=== PATIENT | male | born 1975 | race Caucasian/White ===

== ENCOUNTER 2019-01-17 15:03 | Emergency (ER) | payer OTHER ==
[~2019-01-17] VITALS: Ht 185.4 cm; Wt 108.9 kg
[~2019-01-17 15:03] MED LIST: ALBU90OI INH; ALPR1 PO; AMOX500 PO; ANTOXYBENA RIGHTEAR; ASPI325 PO; CIPDEXSU LEFTEAR; CIPR250 PO; COLC.6 PO; Ciprodex Otic7.5 ML RIGHTEAR; DOCU100 PO; HYDACE25S PR; HYDACE5 PO; HYDCOR2.5C PR; JANUVIA; KETO10 PO; METF500 PO; NAPR550 PO; NEOCOLOTSU OT; NEOPOLHCSU OT; OXYACE5T PO; PARO10 PO; PENVK500 PO; PROM25 PO; RANI150 PO; RXHYDACE PO; RXOXYACE PO; VALS80 PO
[2019-01-17 17:08] LABS: BASOPHILS ABSOLUTE AUTO 0.08 K/mm3 (0.00-0.23); BASOPHILS PERCENT AUTO 1 % (0-2); EOSINOPHILS ABSOLUTE AUTO 0.32 K/mm3 (0.00-0.68); EOSINOPHILS PERCENT AUTO 3 % (0-6); Hemoglobin 16.6 g/dL (13.5-17.5); IMMATURE GRAN ABSOLUTE AUTO 0.06 K/mm3 (0.00-0.10); IMMATURE GRAN PERCENT AUTO 1 % (0-1); LYMPHOCYTES ABSOLUTE AUTO 3.32 K/mm3 (0.84-5.20); LYMPHOCYTES PERCENT AUTO 31 % (21-46); MONOCYTES ABSOLUTE AUTO 0.91 K/mm3 (0.16-1.47); MONOCYTES PERCENT AUTO 9 % (4-13); Mean Corpuscular HGB 27.5 pg (26.0-34.0); Mean Corpuscular HGB Conc 33.2 g/dL (31.5-36.5); Mean Corpuscular Volume 83 fL (80-100); Mean Platelet Volume 8.9 fL (9.1-12.4); NEUTROPHILS ABSOLUTE AUTO 6.07 K/mm3 (1.96-9.15); NEUTROPHILS PERCENT AUTO 56 % (41-73); Platelet Count 375 K/mm3 (150-400); RDW Standard Deviation 36.5 fL (35.1-46.3); Red Blood Cell Count 6.03 M/mm3 (4.30-5.90); White Blood Cell Count 10.76 K/mm3 (4.00-11.30)
[2019-01-17 17:32] LABS: Alanine Aminotransfer (ALT/SGP 50 U/L (12-78); Albumin, Blood 3.5 g/dL (3.4-5.0); Albumin/Globulin Ratio 0.8 (0.8-1.8); Alk Phos 163 U/L (50-136); Anion Gap 8 mmol/L (6-16); Aspartate Aminotrans (AST/SGOT 32 U/L (12-37); Bilirubin, Total 0.5 mg/dL (0.1-1.0); Blood Urea Nitrogen 14 mg/dL (8-24); Bun/Creatinine Ratio 26.4 (12.0-20.0); CO2, Blood 25 mmol/L (21-32); Calcium, Blood 9.1 mg/dL (8.5-10.1); Chloride, Blood 97 mmol/L (98-108); Creatinine, Blood 0.53 mg/dL (0.60-1.20); Globulin, Blood 4.4 g/dL (2.2-4.0); Glomerular Filtration Rate >60 (60-); Glucose, Blood 413 mg/dL (70-99); Potassium, Blood 4.7 mmol/L (3.5-5.5); Sodium, Blood 130 mmol/L (136-145); Total Protein, Blood 7.9 g/dL (6.4-8.2)
[2019-01-17 17:34] LABS: Beta-hydroxybutyrate 1.6 mg/dL (0.2-2.8)
[2019-01-17] MEDS ORDERED: METF500C PO (19:15)
== END 2019-01-17 19:27 | disposition home or self-care (01) ==
LOC: ER 15:03
PROVIDERS: Emergency Medicine
DX: E11.65 Type 2 diabetes mellitus with hyperglycemia (principal); F41.9 Anxiety disorder, unspecified; I10 Essential (primary) hypertension; F17.210 Nicotine dependence, cigarettes, uncomplicated
CPT/HCPCS: 36415; 71046; 80053; 82010; 82947; 84484; 85025; 93005; 93010; 96360; 99285-25; J7030

== ENCOUNTER 2020-07-05 03:59 | Emergency (ER) | payer OTHER ==
[~2020-07-05] VITALS: Ht 185.4 cm; Wt 108.9 kg
[~2020-07-05 03:59] MED LIST changes: +METF500C PO
[2020-07-05] MEDS ORDERED: TRAZ100 PO (04:14)
[2020-07-05] MEDS ORDERED: TAMS.4ER PO (04:14)
[2020-07-05 04:34] LABS: BASOPHILS ABSOLUTE AUTO 0.08 K/mm3 (0.00-0.23); BASOPHILS PERCENT AUTO 1 % (0-2); EOSINOPHILS ABSOLUTE AUTO 0.27 K/mm3 (0.00-0.68); EOSINOPHILS PERCENT AUTO 3 % (0-6); Hemoglobin 14.6 g/dL (13.5-17.5); IMMATURE GRAN ABSOLUTE AUTO 0.02 K/mm3 (0.00-0.10); IMMATURE GRAN PERCENT AUTO 0 % (0-1); LYMPHOCYTES ABSOLUTE AUTO 2.96 K/mm3 (0.84-5.20); LYMPHOCYTES PERCENT AUTO 34 % (21-46); MONOCYTES PERCENT AUTO 9 % (4-13); Mean Corpuscular HGB 26.4 pg (26.0-34.0); Mean Corpuscular HGB Conc 31.7 g/dL (31.5-36.5); Mean Corpuscular Volume 83 fL (80-100); NEUTROPHILS ABSOLUTE AUTO 4.59 K/mm3 (1.96-9.15); NEUTROPHILS PERCENT AUTO 53 % (41-73); Platelet Count 300 K/mm3 (150-400); RDW Coefficient Variation 13.3 % (11.7-14.2); RDW Standard Deviation 40.9 fL (35.1-46.3); Red Blood Cell Count 5.53 M/mm3 (4.30-5.90); White Blood Cell Count 8.72 K/mm3 (4.00-11.30)
[2020-07-05 04:56] LABS: Alanine Aminotransfer (ALT/SGP 51 U/L (12-78); Albumin, Blood 3.5 g/dL (3.4-5.0); Albumin/Globulin Ratio 0.7 (0.8-1.8); Alk Phos 123 U/L (50-136); Anion Gap 6 mmol/L (6-16); Aspartate Aminotrans (AST/SGOT 3 U/L (12-37); Bilirubin, Total 0.8 mg/dL (0.1-1.0); Blood Urea Nitrogen 20 mg/dL (8-24); Bun/Creatinine Ratio 24.5 (12.0-20.0); CO2, Blood 25 mmol/L (21-32); Calcium, Blood 8.8 mg/dL (8.5-10.1); Chloride, Blood 106 mmol/L (98-108); Creatinine, Blood 0.82 mg/dL (0.60-1.20); Glomerular Filtration Rate >60 (60-); Glucose, Blood 147 mg/dL (70-99); Magnesium, Blood 2.2 mg/dL (1.6-2.4); Potassium, Blood 4.2 mmol/L (3.5-5.5); Sodium, Blood 137 mmol/L (136-145); Total Protein, Blood 8.5 g/dL (6.4-8.2); Troponin I <0.015 ng/mL (0.000-0.040)
[2020-07-05] MEDS ORDERED: Lasix20 MG PO (05:37)
== END 2020-07-05 05:48 | disposition home or self-care (01) ==
LOC: ER 03:59
PROVIDERS: Emergency Medicine
DX: R60.0 Localized edema (principal); R20.0 Anesthesia of skin; F41.9 Anxiety disorder, unspecified; E11.9 Type 2 diabetes mellitus without complications; I10 Essential (primary) hypertension; F17.210 Nicotine dependence, cigarettes, uncomplicated; Z79.82 Long term (current) use of aspirin; Z79.899 Other long term (current) drug therapy
CPT/HCPCS: 36415; 71046; 80053; 83690; 83735; 83880; 84484; 85025; 93005; 93010; J1940

== ENCOUNTER 2022-01-02 10:04 | Emergency (ER) | payer OTHER ==
[~2022-01-02] VITALS: Ht 185.4 cm; Wt 113.3 kg
[~2022-01-02 10:04] MED LIST changes: +Lasix20 MG PO; +TAMS.4ER PO; +TRAZ100 PO
[2022-01-02 10:49] LABS: BASOPHILS ABSOLUTE AUTO 0.07 K/mm3 (0.00-0.23); BASOPHILS PERCENT AUTO 1 % (0-2); EOSINOPHILS PERCENT AUTO 2 % (0-6); Hematocrit 50.3 % (37.0-53.0); IMMATURE GRAN ABSOLUTE AUTO 0.06 K/mm3 (0.00-0.10); IMMATURE GRAN PERCENT AUTO 1 % (0-1); LYMPHOCYTES ABSOLUTE AUTO 2.59 K/mm3 (0.84-5.20); LYMPHOCYTES PERCENT AUTO 31 % (21-46); MONOCYTES ABSOLUTE AUTO 0.82 K/mm3 (0.16-1.47); MONOCYTES PERCENT AUTO 10 % (4-13); Mean Corpuscular HGB 25.4 pg (26.0-34.0); Mean Corpuscular HGB Conc 31.8 g/dL (31.5-36.5); Mean Corpuscular Volume 80 fL (80-100); Mean Platelet Volume 9.7 fL (9.1-12.4); NEUTROPHILS ABSOLUTE AUTO 4.69 K/mm3 (1.96-9.15); NEUTROPHILS PERCENT AUTO 56 % (41-73); Platelet Count 280 K/mm3 (150-400); RDW Coefficient Variation 13.9 % (11.7-14.2); RDW Standard Deviation 39.9 fL (35.1-46.3); Red Blood Cell Count 6.29 M/mm3 (4.30-5.90); White Blood Cell Count 8.43 K/mm3 (4.00-11.30)
[2022-01-02 11:07] LABS: Base Excess Venous 3.5 mmol/L; Bicarbonate Venous 25.9 mmol/L (24.0-30.0); PCO2 Venous 51.5 mmHg (38-42); PO2 Venous 48.7 mmHg (38-42); pH Blood Venous 7.36 (7.34-7.37)
[2022-01-02 11:29] LABS: Alanine Aminotransfer (ALT/SGP 43 U/L (12-78); Albumin, Blood 3.5 g/dL (3.4-5.0); Albumin/Globulin Ratio 0.9 (0.8-1.8); Alk Phos 138 U/L (50-136); Anion Gap 6 mmol/L (6-16); Aspartate Aminotrans (AST/SGOT 25 U/L (12-37); Beta-hydroxybutyrate 0.7 mg/dL (0.2-2.8); Bilirubin, Total 1.1 mg/dL (0.1-1.0); Blood Urea Nitrogen 13 mg/dL (8-24); Bun/Creatinine Ratio 16.2 (12.0-20.0); CO2, Blood 29 mmol/L (21-32); Calcium, Blood 9.1 mg/dL (8.5-10.1); Chloride, Blood 97 mmol/L (98-108); Globulin, Blood 3.9 g/dL (2.2-4.0); Glomerular Filtration Rate >60 (60-); Glucose, Blood 365 mg/dL (70-99); Potassium, Blood 4.6 mmol/L (3.5-5.5); Sodium, Blood 132 mmol/L (136-145); Total Protein, Blood 7.4 g/dL (6.4-8.2)
[2022-01-02 11:46] LABS: Source, Urine Clean Catch
[2022-01-02 11:49] LABS: Bilirubin, Urine Neg (Neg); Blood, Urine 4+ (Neg); Glucose Qualitative, Urine 4+ (Neg); Ketones, Urine 1+ (Neg); Leukocyte Esterase, Urine Neg (Neg); Nitrite, Urine Neg (Neg); Protein, Urine 4+ (Neg); Specific Gravity, Urine 1.025 (1.003-1.022); Urobilinogen, Urine 1+ (Normal)
[2022-01-02 11:56] LABS: Appearance, Urine Hazy (Clear); Color, Urine Pale Yellow (P-Yellow); White Blood Cells, Urine 0-2 /hpf (0-5)
[2022-01-02 11:57] LABS: Amorphous Light (0-Heavy); Bacteria Few /hpf; Mucus Light (0-Heavy); Squamous Epithelial Cells Rare /hpf (Few)
[2022-01-02] MEDS ORDERED: SEMGLEE (Y100 UNIT/2 SC (13:21)
[2022-01-02] MEDS ORDERED: LISI5 (13:28)
== END 2022-01-02 14:16 | disposition home or self-care (01) ==
LOC: ER 10:04
PROVIDERS: Emergency Medicine; Student in an Organized Health Care Education/Training Program
DX: E11.65 Type 2 diabetes mellitus with hyperglycemia (principal); E86.0 Dehydration; I10 Essential (primary) hypertension; F17.210 Nicotine dependence, cigarettes, uncomplicated; Z86.16 Personal history of COVID-19; Z79.82 Long term (current) use of aspirin
CPT/HCPCS: 71046; 80053; 81001; 82010; 82803; 82947; 83735; 85025; 87086; 99285-25; A9270; J7030

== ENCOUNTER 2022-03-19 20:07 | Emergency (ER) | payer OTHER ==
[~2022-03-19] VITALS: Ht 185.4 cm; Wt 108.9 kg
[~2022-03-19 20:07] MED LIST changes: +LISI5; +SEMGLEE (Y100 UNIT/2 SC
[2022-03-19] MEDS ORDERED: HYDR1TAB94 PO (20:47)
== END 2022-03-19 21:13 | disposition home or self-care (01) ==
LOC: ER 20:07
DX: S20.212A Contusion of left front wall of thorax, initial encounter (principal); R07.81 Pleurodynia; E11.9 Type 2 diabetes mellitus without complications; F17.200 Nicotine dependence, unspecified, uncomplicated; W18.30XA Fall on same level, unspecified, initial encounter; Z79.4 Long term (current) use of insulin; Z79.899 Other long term (current) drug therapy; Z79.82 Long term (current) use of aspirin
CPT/HCPCS: 71101; A9270

== ENCOUNTER 2023-02-17 00:39 | Emergency (ER) | payer OTHER ==
[~2023-02-17] VITALS: Ht 185.4 cm; Wt 108.9 kg
[~2023-02-17 00:39] MED LIST changes: +HYDR1TAB94 PO
[2023-02-17] MEDS ORDERED: INSULIN GL100 UNIT/4 SC (01:30)
[2023-02-17 01:57] LABS: BASOPHILS ABSOLUTE AUTO 0.05 K/mm3 (0.00-0.23); BASOPHILS PERCENT AUTO 0 % (0-2); EOSINOPHILS ABSOLUTE AUTO 0.07 K/mm3 (0.00-0.68); EOSINOPHILS PERCENT AUTO 1 % (0-6); Hematocrit 47.3 % (37.0-53.0); IMMATURE GRAN ABSOLUTE AUTO 0.13 K/mm3 (0.00-0.10); IMMATURE GRAN PERCENT AUTO 1 % (0-1); LYMPHOCYTES ABSOLUTE AUTO 1.42 K/mm3 (0.84-5.20); LYMPHOCYTES PERCENT AUTO 11 % (21-46); MONOCYTES ABSOLUTE AUTO 1.66 K/mm3 (0.16-1.47); MONOCYTES PERCENT AUTO 13 % (4-13); Mean Corpuscular HGB 28.2 pg (26.0-34.0); Mean Corpuscular HGB Conc 33.8 g/dL (31.5-36.5); Mean Corpuscular Volume 83 fL (80-100); Mean Platelet Volume 9.7 fL (9.1-12.4); NEUTROPHILS ABSOLUTE AUTO 9.97 K/mm3 (1.96-9.15); NEUTROPHILS PERCENT AUTO 75 % (41-73); Platelet Count 193 K/mm3 (150-400); RDW Coefficient Variation 13.5 % (11.7-14.2); Red Blood Cell Count 5.68 M/mm3 (4.30-5.90)
[2023-02-17 02:00] VITALS: BP 134/89
[2023-02-17 02:03] LABS: Albumin, Blood 3.7 g/dL (3.4-5.0); Albumin/Globulin Ratio 0.9 (0.8-1.8); Bilirubin, Total 2.3 mg/dL (0.1-1.0); Bun/Creatinine Ratio 26.5 (12.0-20.0); Calcium, Blood 9.1 mg/dL (8.5-10.1); Creatinine, Blood 0.95 mg/dL (0.60-1.20); Globulin, Blood 4.2 g/dL (2.2-4.0); Potassium, Blood 4.4 mmol/L (3.5-5.5); Total Protein, Blood 7.9 g/dL (6.4-8.2)
[2023-02-17] MEDS ORDERED: CEPH500 PO (05:09)
[2023-02-17] MEDS ORDERED: KETO10 PO (14:15)
== END 2023-02-17 05:40 | disposition home or self-care (01) ==
LOC: ER 00:39
PROVIDERS: Student in an Organized Health Care Education/Training Program
DX: L03.116 Cellulitis of left lower limb (principal); E87.1 Hypo-osmolality and hyponatremia; M79.605 Pain in left leg; M79.604 Pain in right leg; E11.9 Type 2 diabetes mellitus without complications; I10 Essential (primary) hypertension; F17.210 Nicotine dependence, cigarettes, uncomplicated; Z79.899 Other long term (current) drug therapy
CPT/HCPCS: 36415; 80053; 83605; 83880; 85025; 93971; 96361; 96374; 96375; 99284-25; J0696; J7030

== ENCOUNTER 2023-02-25 12:37 | Emergency (ER) | payer OTHER ==
[~2023-02-25] VITALS: Ht 185.4 cm; Wt 113.4 kg
[~2023-02-25 12:37] MED LIST changes: +CEPH500 PO; +INSULIN GL100 UNIT/4 SC
[2023-02-25 13:02] VITALS: BP 135/81
[2023-02-25] MEDS ORDERED: FUROSEMIDE20 MG PO (13:18)
[2023-02-25] MEDS ORDERED: LISI20 PO (13:18)
[2023-02-25] MEDS ORDERED: INSULIN GL100 UNIT/4 SQ (13:18)
[2023-02-25] MEDS ORDERED: CEPH500 PO (13:55)
[2023-02-25] MEDS ORDERED: Norco 5-325 Ta1 EACH PO ×2 (13:56→14:07)
== END 2023-02-25 14:10 | disposition home or self-care (01) ==
LOC: ER 12:37
DX: L02.416 Cutaneous abscess of left lower limb (principal); I10 Essential (primary) hypertension; E11.9 Type 2 diabetes mellitus without complications; F17.210 Nicotine dependence, cigarettes, uncomplicated; Z79.899 Other long term (current) drug therapy; Z79.4 Long term (current) use of insulin
CPT/HCPCS: 10061; 99282-25

== ENCOUNTER → 2023-03-07 | Outpatient (CLI) | payer OTHER ==
[~2023-03-07] MED LIST changes: +FUROSEMIDE20 MG PO; +INSULIN GL100 UNIT/4 SQ; +LISI20 PO; +Norco 5-325 Ta1 EACH PO
[2023-03-07 17:45] LABS: Bun/Creatinine Ratio 26.5 (12.0-20.0); Creatinine, Blood 0.91 mg/dL (0.60-1.20); Magnesium, Blood 1.9 mg/dL (1.6-2.4); Potassium, Blood 4.3 mmol/L (3.5-5.5)
== END | disposition home or self-care (01) ==
LOC: LAB 15:35 → LAB SHORT 15:35
PROVIDERS: Family Medicine
DX: E87.1 Hypo-osmolality and hyponatremia (principal)
CPT/HCPCS: 80048; 83735

== ENCOUNTER → 2023-04-11 | Outpatient (CLI) | payer OTHER ==
[2023-04-11 20:03] LABS: Creatinine, Blood 0.89 mg/dL (0.60-1.20); Potassium, Blood 4.2 mmol/L (3.5-5.5)
[2023-04-11 20:04] LABS: Albumin, Blood 3.6 g/dL (3.4-5.0); Albumin/Globulin Ratio 0.8 (0.8-1.8); Bilirubin, Total 0.7 mg/dL (0.1-1.0); Bun/Creatinine Ratio 33.7 (12.0-20.0); Calcium, Blood 9.7 mg/dL (8.5-10.1); Globulin, Blood 4.3 g/dL (2.2-4.0); Total Protein, Blood 7.9 g/dL (6.4-8.2)
== END | disposition home or self-care (01) ==
LOC: LAB 16:13 → LAB SHORT 16:13
PROVIDERS: Family Medicine Adult Medicine
DX: E87.1 Hypo-osmolality and hyponatremia (principal)
CPT/HCPCS: 80053

== ENCOUNTER 2023-07-06 19:01 | Emergency (ER) | payer OTHER ==
[~2023-07-06] VITALS: Ht 182.9 cm; Wt 108.9 kg
[2023-07-06 19:08] VITALS: BP 139/87
[2023-07-06 19:39] LABS: BASOPHILS ABSOLUTE AUTO 0.06 K/mm3 (0.00-0.23); BASOPHILS PERCENT AUTO 1 % (0-2); EOSINOPHILS ABSOLUTE AUTO 0.05 K/mm3 (0.00-0.68); EOSINOPHILS PERCENT AUTO 0 % (0-6); Hematocrit 50.1 % (37.0-53.0); Hemoglobin 17.1 g/dL (13.5-17.5); IMMATURE GRAN ABSOLUTE AUTO 0.08 K/mm3 (0.00-0.10); IMMATURE GRAN PERCENT AUTO 1 % (0-1); LYMPHOCYTES PERCENT AUTO 13 % (21-46); MONOCYTES PERCENT AUTO 6 % (4-13); Mean Corpuscular HGB 29.2 pg (26.0-34.0); Mean Corpuscular HGB Conc 34.1 g/dL (31.5-36.5); Mean Corpuscular Volume 86 fL (80-100); Mean Platelet Volume 9.6 fL (9.1-12.4); NEUTROPHILS ABSOLUTE AUTO 8.94 K/mm3 (1.96-9.15); NEUTROPHILS PERCENT AUTO 80 % (41-73); Platelet Count 225 K/mm3 (150-400); RDW Coefficient Variation 13.2 % (11.7-14.2); Red Blood Cell Count 5.86 M/mm3 (4.30-5.90); White Blood Cell Count 11.23 K/mm3 (4.00-11.30)
== END 2023-07-06 21:11 | disposition home or self-care (01) ==
LOC: ER 19:01
PROVIDERS: Student in an Organized Health Care Education/Training Program
DX: T40.711A Poisoning by cannabis, accidental (unintentional), initial encounter (principal); R11.2 Nausea with vomiting, unspecified; Z79.4 Long term (current) use of insulin; Z79.899 Other long term (current) drug therapy; E11.9 Type 2 diabetes mellitus without complications; I10 Essential (primary) hypertension; F17.210 Nicotine dependence, cigarettes, uncomplicated
CPT/HCPCS: 85025; 99284; A9270

== ENCOUNTER 2024-07-25 21:51 | Emergency (ER) | payer OTHER ==
[~2024-07-25] VITALS: Ht 182.9 cm; Wt 108.9 kg
[~2024-07-25 21:51] MED LIST changes: +ACET500 PO; +ASPI81CH PO; +FUROSEMIDE40 MG PO; +METOPROLOL SUCC25 MG PO; +ROSUVASTATIN CA10 MG PO; +STEGLATRO15 MG PO; +TAMSULOSIN HCL0.4 M1 PO; +[UNRECOGNIZED DRUG - CODE] PO
[2024-07-25 22:45] LABS: BASOPHILS ABSOLUTE AUTO 0.06 K/mm3 (0.00-0.23); BASOPHILS PERCENT AUTO 1 % (0-2); EOSINOPHILS ABSOLUTE AUTO 0.13 K/mm3 (0.00-0.68); EOSINOPHILS PERCENT AUTO 2 % (0-6); IMMATURE GRAN ABSOLUTE AUTO 0.04 K/mm3 (0.00-0.10); IMMATURE GRAN PERCENT AUTO 1 % (0-1); LYMPHOCYTES ABSOLUTE AUTO 1.74 K/mm3 (0.84-5.20); LYMPHOCYTES PERCENT AUTO 21 % (21-46); MONOCYTES ABSOLUTE AUTO 0.86 K/mm3 (0.16-1.47); MONOCYTES PERCENT AUTO 10 % (4-13); Mean Corpuscular HGB 28.4 pg (26.0-34.0); Mean Corpuscular HGB Conc 32.6 g/dL (31.5-36.5); Mean Corpuscular Volume 87 fL (80-100); Mean Platelet Volume 9.2 fL (9.1-12.4); NEUTROPHILS ABSOLUTE AUTO 5.54 K/mm3 (1.96-9.15); NEUTROPHILS PERCENT AUTO 66 % (41-73); Platelet Count 200 K/mm3 (150-400); RDW Coefficient Variation 13.4 % (11.7-14.2); RDW Standard Deviation 43.1 fL (35.1-46.3); Red Blood Cell Count 5.29 M/mm3 (4.30-5.90); White Blood Cell Count 8.37 K/mm3 (4.00-11.30)
[2024-07-25 23:13] LABS: Albumin, Blood 3.4 g/dL (3.4-5.0); Bilirubin, Total 1.2 mg/dL (0.1-1.0); Bun/Creatinine Ratio 20.9 (12.0-20.0); Calcium, Blood 8.4 mg/dL (8.5-10.1); Creatinine, Blood 1.34 mg/dL (0.60-1.20); Globulin, Blood 3.3 g/dL (2.2-4.0); Potassium, Blood 3.6 mmol/L (3.5-5.5); Total Protein, Blood 6.7 g/dL (6.4-8.2)
[2024-07-26] MEDS ORDERED: Furosemide 10 MG/ML 4ML Vial IV ONE (02:50)
[2024-07-26] MEDS ORDERED: Acetaminophen 500 MG Tab PO ONE (03:10)
[2024-07-26 03:53] LABS: Magnesium, Blood 2.2 mg/dL (1.6-2.4); Phosphorus, Blood 4.1 mg/dL (2.5-4.9)
[2024-07-26] MEDS ORDERED: FURO80 PO (03:58)
[2024-07-26 04:00] VITALS: BP 130/82
== END 2024-07-26 04:10 | disposition home or self-care (01) ==
LOC: ER 21:51
PROVIDERS: Emergency Medicine; Physician Assistant
DX: I11.0 Hypertensive heart disease with heart failure (principal); I50.9 Heart failure, unspecified; I89.0 Lymphedema, not elsewhere classified; E11.9 Type 2 diabetes mellitus without complications; F17.200 Nicotine dependence, unspecified, uncomplicated; Z68.32 Body mass index [BMI] 32.0-32.9, adult; Z79.82 Long term (current) use of aspirin; Z79.899 Other long term (current) drug therapy
CPT/HCPCS: 71046; 80053; 83690; 83735; 83880; 84100; 84484; 85025; 93005; 93010; 93971; 96374; 99285-25; A9270; J1940

== ENCOUNTER 2024-08-23 14:46 | Inpatient (IN) | payer OTHER ==
[~2024-08-23] VITALS: Ht 185.4 cm; Wt 89.5 kg
[~2024-08-23 14:46] MED LIST changes: +FURO80 PO
[2024-08-23] MEDS ORDERED: Ondansetron HCl 2 MG / ML 2ML Vial IV ONE (15:10)
[2024-08-23 15:16] LABS: BASOPHILS ABSOLUTE AUTO 0.06 K/mm3 (0.00-0.23); BASOPHILS PERCENT AUTO 0 % (0-2); EOSINOPHILS ABSOLUTE AUTO 0.16 K/mm3 (0.00-0.68); EOSINOPHILS PERCENT AUTO 1 % (0-6); Hematocrit 47.8 % (37.0-53.0); Hemoglobin 15.6 g/dL (13.5-17.5); IMMATURE GRAN ABSOLUTE AUTO 0.09 K/mm3 (0.00-0.10); IMMATURE GRAN PERCENT AUTO 1 % (0-1); LYMPHOCYTES ABSOLUTE AUTO 0.94 K/mm3 (0.84-5.20); LYMPHOCYTES PERCENT AUTO 6 % (21-46); MONOCYTES PERCENT AUTO 8 % (4-13); Mean Corpuscular HGB 27.5 pg (26.0-34.0); Mean Corpuscular HGB Conc 32.6 g/dL (31.5-36.5); Mean Corpuscular Volume 84 fL (80-100); Mean Platelet Volume 9.5 fL (9.1-12.4); NEUTROPHILS ABSOLUTE AUTO 12.25 K/mm3 (1.96-9.15); NEUTROPHILS PERCENT AUTO 83 % (41-73); Platelet Count 153 K/mm3 (150-400); RDW Coefficient Variation 13.8 % (11.7-14.2); RDW Standard Deviation 42.5 fL (35.1-46.3); Red Blood Cell Count 5.68 M/mm3 (4.30-5.90)
[2024-08-23 15:23] LABS: Albumin/Globulin Ratio 0.7 (0.8-1.8); Bilirubin, Total 2.8 mg/dL (0.1-1.0); Bun/Creatinine Ratio 22.6 (12.0-20.0); Calcium, Blood 8.3 mg/dL (8.5-10.1); Creatinine, Blood 1.24 mg/dL (0.60-1.20); Globulin, Blood 4.2 g/dL (2.2-4.0); Potassium, Blood 4.1 mmol/L (3.5-5.5); Total Protein, Blood 7.2 g/dL (6.4-8.2)
[2024-08-23] MEDS ORDERED: Ketorolac Tromethamine 15mg Vial IV ONE (16:25)
[2024-08-23] MEDS ORDERED: Furosemide 10 MG/ML 4ML Vial IV ONE (16:35)
[2024-08-23 17:02] LABS: Influenza A, PCR NEGATIVE (NEGATIVE); Influenza B, PCR NEGATIVE (NEGATIVE); Resp Syncytial Virus, PCR NEGATIVE (NEGATIVE); SARS-Cov-2 (COVID-19) PCR, MMC NEGATIVE (NEGATIVE)
[2024-08-23 19:23] LABS: Source, Urine Clean Catch
[2024-08-23] MEDS ORDERED: Metoclopramide HCl 5MG / ML 2ML Vial IV ONE (19:30)
[2024-08-23] MEDS ORDERED: Ampicillin Sod/Sulbactam Sod 3 GM in NS 100 ML IV ONE (19:35)
[2024-08-23 19:36] LABS: Appearance, Urine Clear (Clear); Bilirubin, Urine Neg (Neg); Blood, Urine 5+ (Neg); Color, Urine Amber (P-Yellow); Glucose Qualitative, Urine 3+ (Neg); Ketones, Urine Neg (Neg); Leukocyte Esterase, Urine 1+ (Neg); Nitrite, Urine Neg (Neg); Protein, Urine 4+ (Neg); Urobilinogen, Urine NORM (Normal)
[2024-08-23 19:46] LABS: Bacteria Many /hpf; Mucus Light (0-Heavy); Squamous Epithelial Cells Rare /hpf (Few)
[2024-08-23] MEDS ORDERED: FLU VACC TS2024-25(6MOS UP)/PF 45 MCG/0.5 ML SYRINGE IM ONE (20:45)
[2024-08-23] MEDS ORDERED: Ondansetron HCl 2 MG / ML 2ML Vial IV PRN (20:45)
[2024-08-23] MEDS ORDERED: Pantoprazole Sodium 40 MG Injection IV SCH (21:00)
[2024-08-23] MEDS ORDERED: Pantoprazole Sodium 40 MG Injection IV ONE (21:00)
[2024-08-23 21:11] LABS: U Amphetamine Screen DETECTED; U Barbituate Screen Not Detected; U Benzodiazapine Screen Not Detected; U Buprenorphine Screen Not Detected; U Cannabinoids Screen Not Detected; U Cocaine Screen Not Detected; U Methadone Screen Not Detected; U Methamphetamine Screen DETECTED; U Opiates Screen Not Detected; U Oxycodone Screen Not Detected; U Phencyclidine Screen Not Detected
[2024-08-23] MEDS ORDERED: Vancomycin HCL 2,000 MG in NS 500 ML IV ONE (21:35)
[2024-08-23] MEDS ORDERED: CeFAZolin Sodium 2,000 MG in NS 100 ML IV SCH (22:00)
[2024-08-23 23:51] VITALS: BP 119/86
[2024-08-24] MEDS ORDERED: ACET500 PO (00:27)
--- NOTE | 2024-08-24 00:58 | NUR ---
ADMIT NOTE 49 YR OLD MALE ADMITTED FROM THE ED WITH DX OF CELLULITIS OF RLE, (SEE PICTURE IN CHART). ALERT AND ORIENTED X 4. ON IV ANTIBIOTICS. VOICES ABLE TO AMBULATE. ORIENTED TO USE OF CALL LIGHT AND BED CONTROL. AGREES TO USE CALL LIGHT IF NRRFD ASSISTANCE. ON ISOLATION PRECAUTIONS UNTIL GI PANEL OBTAINED. ED RN REPORTED PT HAD "BLOODY STOOL" BUT DID NOT OBTAIN STOOL SAMPLE. CALL LIGHT IN REACH. NOTIFIED OF PT HAVING PAIN AND ANXIETY AND OF THE CELLULITIS OF HIS LEG. ORDERS OBTAINED. WILL MONITOR
[2024-08-24] MEDS ORDERED: FentaNYL Citrate 50 MCG/ML 2 ML Injection IV PRN (01:00)
[2024-08-24] MEDS ORDERED: LORazepam 0.5 MG Tab PO ONE (01:00)
[2024-08-24] MEDS ORDERED: LevoFLOXacin 750 MG/D5W 150ML 150 ML IV SCH (01:10)
[2024-08-24 02:47] LABS: BASOPHILS ABSOLUTE AUTO 0.03 K/mm3 (0.00-0.23); BASOPHILS PERCENT AUTO 0 % (0-2); EOSINOPHILS ABSOLUTE AUTO 0.01 K/mm3 (0.00-0.68); EOSINOPHILS PERCENT AUTO 0 % (0-6); Hemoglobin 15.6 g/dL (13.5-17.5); IMMATURE GRAN ABSOLUTE AUTO 0.04 K/mm3 (0.00-0.10); IMMATURE GRAN PERCENT AUTO 0 % (0-1); LYMPHOCYTES ABSOLUTE AUTO 0.73 K/mm3 (0.84-5.20); LYMPHOCYTES PERCENT AUTO 7 % (21-46); MONOCYTES PERCENT AUTO 11 % (4-13); Mean Corpuscular HGB Conc 32.5 g/dL (31.5-36.5); Mean Corpuscular Volume 86 fL (80-100); Mean Platelet Volume 10.1 fL (9.1-12.4); NEUTROPHILS ABSOLUTE AUTO 8.44 K/mm3 (1.96-9.15); NEUTROPHILS PERCENT AUTO 82 % (41-73); Platelet Count 127 K/mm3 (150-400); RDW Coefficient Variation 13.9 % (11.7-14.2); RDW Standard Deviation 43.8 fL (35.1-46.3); Red Blood Cell Count 5.58 M/mm3 (4.30-5.90); White Blood Cell Count 10.35 K/mm3 (4.00-11.30)
[2024-08-24 03:05] LABS: Albumin, Blood 2.8 g/dL (3.4-5.0); Albumin/Globulin Ratio 0.7 (0.8-1.8); Bilirubin, Total 2.4 mg/dL (0.1-1.0); Bun/Creatinine Ratio 33.3 (12.0-20.0); Calcium, Blood 8.5 mg/dL (8.5-10.1); Creatinine, Blood 1.08 mg/dL (0.60-1.20); Globulin, Blood 3.9 g/dL (2.2-4.0); Potassium, Blood 4.5 mmol/L (3.5-5.5); Total Protein, Blood 6.7 g/dL (6.4-8.2)
--- NOTE | 2024-08-24 03:14 | NUR ---
GAMING SURVEILLANCE OBSERVER SUMMARY ADMITTED EARLIER IN THE SHIFT FROM THE ED WITH DX OF CELLULITIS OF RLE. RLE SWOLLEN AND REDDENED - SEE PIC IN CHART. IV ANTIBIOTICS ADMINISTERED, VOICED DISCOMFORT OF LEG AND APARENT ANXIETY. MD NOTIFIED AND MEDS ORDERED FOR PAIN AND ATIVAN 0.5 MF PO X 1. MD WAS ALSO NOTIFIED OF HIS CELLULITIS. MEDS EFFECTIVE, CURRENTLY RESTING QUIETLY. ON CONTACT ISOLATION PRECAUTINS UNTIL GI PANEL OBTAINED AND TESTS DONE. ORIENTED TO USE OF CALL LIGHT, RAILS UP X 2 AND BED IN LOW POSITOIN FOR SAFETY. CALL LIGHT IN REACH. MED TELE ST. WILL CONT TO MONITOR
[2024-08-24 03:39] VITALS: BP 124/92
[2024-08-24 07:29] VITALS: BP 141/100
[2024-08-24] MEDS ORDERED: Insulin Human Lispro 100 Units/ML 3ML Syringe SC SCH ×2 (07:30)
[2024-08-24] MEDS ORDERED: LORazepam 0.5 MG Tab PO PRN (07:35)
[2024-08-24] MEDS ORDERED: OxyCODONE HCL 5 MG TAB PO PRN (07:35)
[2024-08-24] MEDS ORDERED: Polyethylene Glycol 3350 17 gm PO PRN (08:55)
[2024-08-24] MEDS ORDERED: Multivitamins 1 Tab PO SCH (09:00)
[2024-08-24] MEDS ORDERED: Lactobacil 2-S.Thermo-Bifido 1 1 Cap PO SCH (09:00)
[2024-08-24] MEDS ORDERED: Cholecalciferol 1000 Unit Tablet (=25MCG) PO SCH (09:00)
[2024-08-24] MEDS ORDERED: Furosemide 10 MG/ML 4ML Vial IV SCH (09:00)
[2024-08-24] MEDS ORDERED: Heparin Sodium,Porcine 5,000 UNIT/0.5 ML SDV SC SCH (09:00)
[2024-08-24] MEDS ORDERED: Tamsulosin HCl 0.4 MG Cap PO SCH (09:00)
[2024-08-24] MEDS ORDERED: Vancomycin HCL 1,250 MG in NS 250 ML IV SCH (10:00)
--- NOTE | 2024-08-24 18:14 | NUR ---
SHIFT SUMMARY PATIENT A/OX4, ABLE TO MAKE NEEDS KNOWN. ANXIOUS AND STATES HE IS IN PAIN INTERMITTENTLY THROUGHOUT THE SHIFT. PRN FENTANYL, OXY, AND ATIVAN GIVEN PER MAR THROUGHOUT SHIFT WHICH ARE EFFECTIVE. PICTURES OBTAINED OF CELLULITIS TO RIGHT LEG AND BORDERS DRAWN WITH MARKER. NEW PIV PLACED TO RIGTH HAND, PER PATIENT REQUEST. PATIEN RESTLESS IN BED INTERMITTENTLY TODAY AND STATES DISCOMORT WITH MATTRES, MULTIPE PILLOWS AND A FOAM PAD PROVIDED FOR COMFORT. MULTIPLE FAMILY MEMBERS AND FRIENDS VISITED THROUGHOUT THE DAY. ECHOCARDIOGRAM OBTAINED THIS SHIFT. TELEMETRY IN PLACE, WITH NO EVENTS NOTED. NO OTHER CONCERNS AT THIS TIME.
[2024-08-24 18:37] VITALS: BP 111/67
[2024-08-24 19:24] VITALS: BP 116/91
[2024-08-25] VITALS (8 sets, daily range): BP systolic 98–144; BP diastolic 78–107
--- NOTE | 2024-08-25 04:14 | NUR ---
POST ACCIDENTAL FALL NOTE WAS IN THE BATHROOM AFTER REQUESTING PAIN MED FOR RIGHT LEG CELLULITIS. NURSE BROUGHT PAIN MED AND NOTICED PT IN BATHROOM, AGREED TO CALL NURSE WHEN HE WAS OUT OF BATHROOM AND IN BED. ALERT AND ORIENTED AND AGREED TO SAID REQUEST. NURSE LEFT ROOM. A FEW MINUTES LATER, HEARD A BOOM SOUND COMING FROM ROOM, UPON ARRIVING AT ROOM, NOTED PT ON FLOOR IN BATHROOM. ROTARY SWAGING MACHINE OPERATOR JOINED NURSE IN BATHROOM. PT AWAKE, NO NOTED LOSS OF CONSCIOUSNESS. NURSE ATTEMPTED TO HELP PT UP, BUT PT SAID HE COULD DO IT ALONE AND GOT UP BY SELF. ACCOMPANIED TO BED. VITAL SIGNS TAKEN. NOTED ABRASION OF RIGHT FOREARM, (SEE PIC IN CHART). ALSO HAD BLEEDING OF RIGHT FOOT, NOTED SMALL ABRASION OF RIGHT FOOT. - SEE PIC. DENIED HITTING HEAD. NOTIFIED AND STATED FOR STAFF TO MONITOR PT. WAS NOTIFIED OF SAID SKIN ANOMALIES. WAS CALLED, NOTIFIED OF PT FALL. DRESSINGS APPLIED TO ABOVE MENTIONED SITES. BED ALARM ON. CALL LIGHT IN REACH. WILL CONT TO MONITOR
--- NOTE | 2024-08-25 04:45 | NUR ---
TIRE SERVICE SUPERVISOR SUMMARY BP ELEVATED AFTER APPARENT FALL IN THE BATHROOM EARLIER. BEFORE APPARENT FALL, BP WAS LOW NORMAL AND OTHERWISE VSS. HAD FAMILY VISIT AT , WAS VOICING PAIN OF RIGHT LEG - CELLULITIS, PAIN MEDS AND BEDREST ENCOURAGED. FAMILY LEFT AND PT WENT TO BED. LATER IN THE SHIFT WAS C/O PAIN AGAIN, NURSE BROUGHT MED, PT WAS IN THE BATHROOM. VOICED HE WOULD LET NURSE KNOW WHEN HE GOT BACK TO BED FOR MED. SOON AFTER NURSE HEARD LOUD SOUND COMING FROM PT ROOM, UPON ARRIVAL NOTED PT ON BATHROOM FLOOR WITH ABRASION OF RIGHT FOREARM AND RIGHT FOOT. PT DENIED HITTING HEAD. BP ELEVATED POST ISSUE OTHERWISE VSS. MD NOTIFIED, (DR MOTT). WHO STATED TO MONITOR, WAS NOTIFIED OF ABRASIONS AND AGREED TO NURSE PUTTING ON DRESSINGS. NOTIFIED. PT IN BED WITH BED ALARM ON. PT CURRENTLY SLEEPING, ASYMPTOMATIC. WILL CONT TO MONITOR. CHARGE NURSE, SEX OFFENDER TREATMENT PROFESSIONAL NOTIFIED. CALL LIGHT IN REACH, RAILS UP X 2 AND BED IN LOW POSITION FOR SAFETY.
[2024-08-25 06:22] LABS: Hematocrit 44.5 % (37.0-53.0); Hemoglobin 14.9 g/dL (13.5-17.5); Mean Corpuscular HGB 28.1 pg (26.0-34.0); Mean Corpuscular HGB Conc 33.5 g/dL (31.5-36.5); Mean Corpuscular Volume 84 fL (80-100); Platelet Count 146 K/mm3 (150-400); RDW Coefficient Variation 13.6 % (11.7-14.2); RDW Standard Deviation 41.8 fL (35.1-46.3); Red Blood Cell Count 5.31 M/mm3 (4.30-5.90); White Blood Cell Count 11.13 K/mm3 (4.00-11.30)
[2024-08-25 07:14] LABS: Albumin, Blood 2.8 g/dL (3.4-5.0); Anion Gap 15 mmol/L (3-11); Blood Urea Nitrogen 51 mg/dL (8-24); Bun/Creatinine Ratio 35.7 (12.0-20.0); CO2, Blood 22 mmol/L (21-32); Calcium, Blood 8.1 mg/dL (8.5-10.1); Chloride, Blood 92 mmol/L (98-108); Creatinine, Blood 1.43 mg/dL (0.60-1.20); Glomerular Filtration Rate 60 (60-); Glucose, Blood 195 mg/dL (70-99); Phosphorus, Blood 2.8 mg/dL (2.5-4.9); Potassium, Blood 3.6 mmol/L (3.5-5.5); Sodium, Blood 125 mmol/L (136-145)
[2024-08-25] MEDS ORDERED: Empagliflozin 10 MG TAB PO SCH (09:00)
[2024-08-25] MEDS ORDERED: Metoprolol Succinate 25 MG TABCR PO SCH (09:00)
[2024-08-25] MEDS ORDERED: NS 250 ML IV PRN (10:00)
[2024-08-25 10:17] LABS: Vancomycin, Trough 18.9 ug/mL (5.0-10.0)
[2024-08-25] MEDS ORDERED: FURO40 PO (10:25)
[2024-08-25] MEDS ORDERED: Acetaminophen 500 MG Tab PO PRN (11:05)
[2024-08-25] MEDS ORDERED: Aspirin 81 MG Chew PO SCH (12:00)
[2024-08-25] MEDS ORDERED: OxyCODONE HCL 5 MG TAB PO PRN (12:20)
[2024-08-25] MEDS ORDERED: Simethicone 80 MG Chew PO PRN (15:55)
--- NOTE | 2024-08-25 16:52 | NUR ---
SHIFT SUMMARY PATIENT A/OX4, ABLE TO MAKE NEEDS KNOWN. PLEASANT AND COOPERATIVE WITH CARE DESPITE BEING ANXIOUS THIS EVENING. FAXED [facility] THIS MONRING TO OBTAIN MEDICATION HISTORY FOR PATIENT, BUT THEY ARE NOT OPEN TODAY. PATIENT COMPLAINING OF INCREASED PAIN, PRN OXY INCREASED TO Q4H PRN. PATIENT ALSO COMPLAINING OF NAUSEA, GAS PAIN, AND CONSTIPATION. GIVEN ZOFRAN, SIMETHICONE, AND PATIENT REFUSED MIRALAX. TELEMETRY WAS DISCONTINUED TODAY PER DR. POWER. INCREASED ANXIETY THIS EVENING, PATIENT GIVEN PRN ATIVAN. NO OTHER CONCERNS AT THIS TIME.
--- NOTE | 2024-08-25 20:01 | NUR ---
C/O HEAD PAIN AND AM RN REPORTED APPARENT "HALLUCINATIONS" VERBALIZED. NEURO CHECK PUPILS EQUAL BUT SLOW TO RESPOND. VOICED DECREASED FEELING IN "FINGERTIPS". CALL PLACED TO MD, ORDERS FOR HEAD CT WITHOUT CONTRAST. RADIOLOGY NOTIFIED AND WILL COME FOR PT SOON FOR SAID CT.
[2024-08-26 03:57] VITALS: BP 112/80
[2024-08-26 05:21] LABS: Hematocrit 45.7 % (37.0-53.0); Hemoglobin 15.4 g/dL (13.5-17.5); Mean Corpuscular HGB 27.5 pg (26.0-34.0); Mean Corpuscular HGB Conc 33.7 g/dL (31.5-36.5); Mean Corpuscular Volume 82 fL (80-100); Mean Platelet Volume 10.7 fL (9.1-12.4); Platelet Count 173 K/mm3 (150-400); RDW Coefficient Variation 13.6 % (11.7-14.2); RDW Standard Deviation 40.3 fL (35.1-46.3); Red Blood Cell Count 5.59 M/mm3 (4.30-5.90); White Blood Cell Count 15.02 K/mm3 (4.00-11.30)
[2024-08-26 05:42] LABS: Bun/Creatinine Ratio 35.8 (12.0-20.0); Calcium, Blood 8.1 mg/dL (8.5-10.1); Creatinine, Blood 1.51 mg/dL (0.60-1.20)
--- NOTE | 2024-08-26 05:49 | NUR ---
SHIFT SUMMARY AT START OF SHIFT PT C/O VISUAL HALLUCINATIONS AND "MY BRAIN HURTING". STATED SYMPTOMS STARTED THIS AFTERNOON. PROVIDER NOTIFIED- HEAD CT ORDERED AND COMPLETED, RESULTS PENDING. SYMPTOMS IMPROVED THROUGT THE NIGHT. MEDICATED FOR BACK AND LG PAIN- SEE MAR. RIGHT LEG REMAINS RED WITHIN THE MARKED LINE. PT COOPERATIVE THROUGH THE NIGHT. BED ALARM ON, CALL LIGHT WITHIN REACH. BED ALARM ON.
[2024-08-26] MEDS ORDERED: Pantoprazole Sodium 20 MG Tab PO SCH (06:00)
[2024-08-26 07:14] VITALS: BP 111/76
[2024-08-26] MEDS ORDERED: NS 1,000 ML IV SCH ×2 (08:00→11:40)
--- NOTE | 2024-08-26 08:45 | NUR ---
pt laying in bed awake watching tv, a/ox4, pleasant and cooperative with care, follows commands well, states his right leg hurts and is ready for pain meds when he can have them, lungs are clear dim in bases, resp even and unlabored, no cough noted, hrr, edema noted to right foot, ppp+1, cap refill <3 sec, vs stable, afebrile, iv to rh, site is clear and patent, btx4, abd flat soft nontender, voids without diff, skin has red on right lower ext, outline, looks to be receding, shane corbin, he reports he did fall in the bathroom, so will be a stand by asssit, call light in reach.
[2024-08-26] MEDS ORDERED: Insulin Human Lispro 100 Units/ML 3ML Syringe SC SCH (11:30)
[2024-08-26 15:33] VITALS: BP 124/83
[2024-08-26] MEDS ORDERED: METO25ER PO (17:45)
[2024-08-26] MEDS ORDERED: TAMS.4ER PO (17:46)
[2024-08-26] MEDS ORDERED: LANTUS SOL100 UNIT/1 SC (17:47)
[2024-08-26] MEDS ORDERED: STEGLATRO15 MG PO (17:49)
--- NOTE | 2024-08-26 19:36 | NUR ---
pt sleeping most of the day when left undisturbed, no complaints, leg looks more red this evening than it did this am, report to night RN, he will notify no further changes this shift. call light in reach.
[2024-08-26 20:23] VITALS: BP 116/71
[2024-08-27 03:28] VITALS: BP 111/76
[2024-08-27 05:21] LABS: Hematocrit 46.8 % (37.0-53.0); Hemoglobin 15.5 g/dL (13.5-17.5); Mean Corpuscular HGB 27.6 pg (26.0-34.0); Mean Corpuscular HGB Conc 33.1 g/dL (31.5-36.5); Mean Corpuscular Volume 83 fL (80-100); Mean Platelet Volume 11.2 fL (9.1-12.4); Platelet Count 200 K/mm3 (150-400); RDW Coefficient Variation 13.7 % (11.7-14.2); RDW Standard Deviation 41.4 fL (35.1-46.3); Red Blood Cell Count 5.62 M/mm3 (4.30-5.90); White Blood Cell Count 13.21 K/mm3 (4.00-11.30)
[2024-08-27 05:56] LABS: Bun/Creatinine Ratio 33.4 (12.0-20.0); Calcium, Blood 8.1 mg/dL (8.5-10.1); Creatinine, Blood 0.96 mg/dL (0.60-1.20); Potassium, Blood 4.9 mmol/L (3.5-5.5)
--- NOTE | 2024-08-27 05:56 | NUR ---
NOC SUMMARY- PT RIGHT LEG IS MORE RED THIS SHIFT. NEW OUTLINE MADE AND NEW PICS IN CHART. PT HAS BEEN VOIDING WELL VIA URINAL. PAIN MANAGED WELL. PT DID HAVE SOME INCREASED ANXIETY THIS SHIFT AND WAS TX PER JAN. PT WAS ABLE TO REST IN NO DISTRESS. NO OTHER ISSES NOTED. CALL LIGHT IN REACH.
[2024-08-27 07:28] VITALS: BP 128/85
[2024-08-27] MEDS ORDERED: Clindamycin 900mg in D5W 50ML 50 ML IV SCH (08:00)
[2024-08-27] MEDS ORDERED: Losartan Potassium 25 MG Tab PO SCH (14:00)
[2024-08-27 15:08] VITALS: BP 130/94
--- NOTE | 2024-08-27 18:02 | NUR ---
REPORT RECEIVED VERIFIED, PT DOING WELL AND INDEPENDANT IN ROOM, PT DID HAVE A FALL ON SEPARATE UNIT BUT WILL CALL TEAM WHEN EXITING BEDSIDE, AFTER WALKING WITH PT IT WAS DETERMINED THAT PT IS STABLE ON FEET. ASSISTED TO BATHROOM FOR A SHOWER. PT HAD CT OF LOWER EXTREMITY TODAY NO CHANGE PT HAD NO ADVERSE EVENTS AND, IV TO RIGHT FOREARM PLACED PT ABLE TO MAKE NEEDS KNOWN. NO S/S OF CONFUSION NOR HALLUICINATIONS
[2024-08-27 20:05] VITALS: BP 123/73
--- NOTE | 2024-08-28 04:46 | NUR ---
NOC SUMMARY- PT CONTINUES TO HAVE EPISODES OF LOOSE STOOLS. PT HAD SOME TOOTH DISCOMFORT AND TYLENOL WAS ORDER. PT RESPONDED WELL. PT HAS BEEN EATING AND DRINKING WELL. PT HAD NO OTHER ISSUES. PT AMBULATING WELL. CALL LIGHT IN REACH.
--- NOTE | 2024-08-28 04:50 | NUR ---
NOC SUMMARY- PT PAIN MANAGED WELL. PT EATING AND DRINKING. PT VOIDING. PT HAS BEEN SLEEPING SOUNDLY FOR MOST OF SHIFT. PT HAS NO NEW ISSUES. CALL LIGHT IN REACH.
[2024-08-28 05:15] VITALS: BP 123/84
[2024-08-28 05:52] LABS: Hematocrit 41.5 % (37.0-53.0); Hemoglobin 13.9 g/dL (13.5-17.5); Mean Corpuscular HGB 27.6 pg (26.0-34.0); Mean Corpuscular HGB Conc 33.5 g/dL (31.5-36.5); Mean Corpuscular Volume 83 fL (80-100); Platelet Count 238 K/mm3 (150-400); RDW Coefficient Variation 13.9 % (11.7-14.2); RDW Standard Deviation 41.4 fL (35.1-46.3); Red Blood Cell Count 5.03 M/mm3 (4.30-5.90)
[2024-08-28 06:29] LABS: Bun/Creatinine Ratio 37.4 (12.0-20.0); Calcium, Blood 7.7 mg/dL (8.5-10.1); Creatinine, Blood 0.88 mg/dL (0.60-1.20); Potassium, Blood 3.7 mmol/L (3.5-5.5)
[2024-08-28 07:21] VITALS: BP 129/90
[2024-08-28] MEDS ORDERED: Metoprolol Succinate 50 MG TABCR PO SCH (09:00)
[2024-08-28] MEDS ORDERED: Torsemide 20 MG TAB PO SCH (09:00)
[2024-08-28] MEDS ORDERED: Magnesium Hydroxide Conc 10 ML UDC PO SCH (12:00)
[2024-08-28] MEDS ORDERED: Docusate Sodium 100 MG Cap PO SCH (12:00)
[2024-08-28 15:57] VITALS: BP 114/67
--- NOTE | 2024-08-28 18:40 | NUR ---
UNEVENTFUL DAY FOR PT HAS BEEN INDEPENDANT AND SLEEPING MOST OF DAY. PAIN CONT TO RIGHT LEG BUT SWELLING AND REDNESS HAVE DECREASED SINCE YESTURDAY. PT IS APPROPRIATE AND CAN MAKE NEEDS KNOWN, HAS BEEN STABLE ON FEET AND CALLS BEFORE HEADING TO BATHROOM.
[2024-08-28 19:54] VITALS: BP 91/58
[2024-08-29 04:12] VITALS: BP 111/72
--- NOTE | 2024-08-29 05:50 | NUR ---
Patient alert and oriented, VSS, resting comfortably in bed on room air overnight. Patient able to ambulate independently to restroom for needs. IV antibiotics tolerated well. PRN pain and anxiety medications given overnight as requested, see eMAR for detail.
[2024-08-29 05:52] LABS: Bun/Creatinine Ratio 27.6 (12.0-20.0); Calcium, Blood 7.9 mg/dL (8.5-10.1); Creatinine, Blood 1.16 mg/dL (0.60-1.20)
[2024-08-29 07:52] VITALS: BP 123/97
[2024-08-29 11:12] VITALS: BP 125/89
[2024-08-29] MEDS ORDERED: LOSA25 PO (11:50)
[2024-08-29] MEDS ORDERED: VISBIOME 112.51 EACH PO (11:51)
[2024-08-29] MEDS ORDERED: MULVITA PO (11:51)
[2024-08-29] MEDS ORDERED: DULCOLAX400 MG/5 M PO (11:51)
[2024-08-29] MEDS ORDERED: CEPH500 PO (11:52)
--- NOTE | 2024-08-29 14:04 | NUR ---
DISCHARGE NOTE PT DISCHARGED TO HOME, PICKED UP BY HIS BROTHER. IV REMOVED. DISCHARGE INFORMATION AND EDUCATION PROVIDED. HARD SCRIPT PROVIDED. PERSONAL BELONGINGS RETURNED. REVIEWED DISCHARGE INFORMATION.
== END 2024-08-29 13:26 | disposition home or self-care (01) | DRG 871 ==
LOC: ER 14:46 → ERHOLD 20:52 → MEDS 20:52
PROVIDERS: Internal Medicine; Nurse Practitioner Acute Care; Student in an Organized Health Care Education/Training Program; ADMIT Internal Medicine
DX: A41.9 Sepsis, unspecified organism (principal); I50.23 Acute on chronic systolic (congestive) heart failure; E87.1 Hypo-osmolality and hyponatremia; N17.9 Acute kidney failure, unspecified; L03.115 Cellulitis of right lower limb; K92.1 Melena; I11.0 Hypertensive heart disease with heart failure; R65.20 Severe sepsis without septic shock; N40.0 Benign prostatic hyperplasia without lower urinary tract symptoms; E86.0 Dehydration; F15.10 Other stimulant abuse, uncomplicated; Z71.51 Drug abuse counseling and surveillance of drug abuser; Z79.82 Long term (current) use of aspirin; Z79.899 Other long term (current) drug therapy; Z87.891 Personal history of nicotine dependence
CPT/HCPCS: 0241U; 36415; 70450; 71045; 73701; 76770; 80048; 80053; 80069; 80202; 81001; 82272; 82375; 82550; 82947; 83605; 83735; 83880; 84295; 84484; 85025; 85027; 87040; 87086; 93005; 93010; 96365; 96375; 99285-25; A9270; C8929; J0295; J0690; J1885; J1940; J2405; J2470; J2765; J3010; J3370; J7040; J7050; Q9957; Q9967

== ENCOUNTER 2024-08-29 17:32 | Emergency (ER) | payer OTHER ==
[~2024-08-29] VITALS: Ht 185.4 cm; Wt 108.9 kg
[~2024-08-29 17:32] MED LIST changes: +DULCOLAX400 MG/5 M PO; +FURO40 PO; +LANTUS SOL100 UNIT/1 SC; +LOSA25 PO; +METO25ER PO; +MULVITA PO; +VISBIOME 112.51 EACH PO
[2024-08-29 17:35] VITALS: BP 126/78
== END 2024-08-29 18:08 | disposition left against medical advice (07) ==
LOC: ER 17:32
DX: K92.1 Melena (principal); Z53.29 Procedure and treatment not carried out because of patient's decision for other reasons
CPT/HCPCS: 99281

== ENCOUNTER 2024-09-01 01:58 | Inpatient (IN) | payer OTHER ==
[~2024-09-01] VITALS: Ht 185.4 cm; Wt 122.1 kg
[2024-09-01] MEDS ORDERED: CeFAZolin Sodium 2,000 MG in NS 100 ML IV ONE (04:30)
[2024-09-01] MEDS ORDERED: Vancomycin HCL 2,000 MG in NS 520 ML IV ONE (04:30)
[2024-09-01 04:47] LABS: Hematocrit 42.6 % (37.0-53.0); Hemoglobin 13.9 g/dL (13.5-17.5); Mean Corpuscular HGB 27.7 pg (26.0-34.0); Mean Corpuscular HGB Conc 32.6 g/dL (31.5-36.5); Mean Corpuscular Volume 85 fL (80-100); Mean Platelet Volume 8.5 fL (9.1-12.4); Platelet Count 325 K/mm3 (150-400); RDW Coefficient Variation 14.7 % (11.7-14.2); RDW Standard Deviation 45.4 fL (35.1-46.3); Red Blood Cell Count 5.02 M/mm3 (4.30-5.90); White Blood Cell Count 13.18 K/mm3 (4.00-11.30)
[2024-09-01 05:07] LABS: Albumin/Globulin Ratio 0.7 (0.8-1.8); Bilirubin, Total 0.8 mg/dL (0.1-1.0); Bun/Creatinine Ratio 30.3 (12.0-20.0); Calcium, Blood 8.5 mg/dL (8.5-10.1); Creatinine, Blood 0.89 mg/dL (0.60-1.20); Globulin, Blood 4.1 g/dL (2.2-4.0); Potassium, Blood 4.1 mmol/L (3.5-5.5); Total Protein, Blood 7.1 g/dL (6.4-8.2)
[2024-09-01] MEDS ORDERED: Furosemide 10 MG/ML 4ML Vial IV ONE (05:10)
[2024-09-01 05:32] LABS: BAND PERCENT MAN 3 % (0-8); BASOPHILS PERCENT MAN 0 % (0-2); EOSINOPHILS ABSOLUTE MAN 0.26 K/mm3 (0.00-0.68); EOSINOPHILS PERCENT MAN 2 % (0-6); LYMPHOCYTES ABSOLUTE MAN 1.44 K/mm3 (0.84-5.20); LYMPHOCYTES PERCENT MAN 11 % (21-46); METAMYELOCYTE ABSOLUTE MAN 0.13 K/mm3 (0.00-0.00); METAMYELOCYTE PERCENT MAN 1 % (0-0); MONOCYTES ABSOLUTE MAN 1.05 K/mm3 (0.16-1.47); MONOCYTES PERCENT MAN 8 % (4-13); MYELOCYTE ABSOLUTE MAN 0.39 K/mm3 (0.00-0.00); MYELOCYTE PERCENT MAN 3 % (0-0); NEUTROPHILS ABSOLUTE MAN 9.88 K/mm3 (1.96-9.15); SEG NEUTROPHILS PERCENT MAN 72 % (41-73); TOTAL CELLS COUNTED 100
[2024-09-01] MEDS ORDERED: FLU VACC TS2024-25(6MOS UP)/PF 45 MCG/0.5 ML SYRINGE IM ONE (05:35)
[2024-09-01] MEDS ORDERED: OxyCODONE HCL 5 MG TAB PO PRN ×2 (05:50→15:45)
[2024-09-01] MEDS ORDERED: Insulin Human Lispro 100 Units/ML 3ML Syringe SC SCH (07:30)
[2024-09-01] MEDS ORDERED: Potassium Chloride 20 MEQ TabCR PO SCH (08:00)
[2024-09-01] MEDS ORDERED: Losartan Potassium 25 MG Tab PO SCH (09:00)
[2024-09-01] MEDS ORDERED: Lactobacil 2-S.Thermo-Bifido 1 1 Cap PO SCH (09:00)
[2024-09-01] MEDS ORDERED: Empagliflozin 10 MG TAB PO SCH (09:00)
[2024-09-01] MEDS ORDERED: Metoprolol Succinate 50 MG TABCR PO SCH (09:00)
[2024-09-01] MEDS ORDERED: Furosemide 10 MG/ML 4ML Vial IV SCH (09:00)
[2024-09-01] MEDS ORDERED: Aspirin 81 MG Chew PO SCH (09:00)
[2024-09-01 17:02] VITALS: BP 125/85
[2024-09-01] MEDS ORDERED: Vancomycin HCL 1,250 MG in NS 250 ML IV SCH (18:00)
--- NOTE | 2024-09-01 19:07 | NUR ---
1705 RECEIVED PT TO RM 358 FROM ER. PT IS A&O, PLEASANT AND CO-OP WITH CARE. INDEPENDENT IN AND TO [facility]. USES URINAL AT BS, WHEN IV PUMP INFUSING. PT ON 1800cc FLUID RESTRICTION, WHICH WAS GIVEN IN ER, PRIOR TO COMING TO UNIT. PT OK WITH ICE CHIPS FOR TONIGHT. PT IS MORBIDLY OBESE. ADMITTED FOR BLE CELLULITIS; LE'S RED AND SWOLLEN. IV LASIX AND IV ABX GIVEN PER EMAR. MEDICATED IN ER FOR C/O PAIN TO LE'S. ABLE TO MAKE NEEDS KNOWN. CALL LT IN REACH.
[2024-09-01] MEDS ORDERED: Insulin Glargine-Yfgn 100 Unit/mL 3 ML SYR SC SCH (21:00)
[2024-09-01] MEDS ORDERED: Tamsulosin HCl 0.4 MG Cap PO SCH (21:00)
[2024-09-01 21:25] VITALS: BP 110/65
[2024-09-02 04:03] VITALS: BP 107/64
--- NOTE | 2024-09-02 04:29 | NUR ---
SHIFT SUMMARY: Pt is admitted for cellulitis and is a full code. Is alert and able to make needs known. ADLs have been mainly IND. pain has been managed by PRN pain management.
[2024-09-02 05:24] LABS: BASOPHILS ABSOLUTE AUTO 0.09 K/mm3 (0.00-0.23); BASOPHILS PERCENT AUTO 1 % (0-2); EOSINOPHILS ABSOLUTE AUTO 0.22 K/mm3 (0.00-0.68); EOSINOPHILS PERCENT AUTO 2 % (0-6); Hematocrit 41.7 % (37.0-53.0); Hemoglobin 13.4 g/dL (13.5-17.5); IMMATURE GRAN ABSOLUTE AUTO 0.34 K/mm3 (0.00-0.10); IMMATURE GRAN PERCENT AUTO 4 % (0-1); LYMPHOCYTES ABSOLUTE AUTO 1.43 K/mm3 (0.84-5.20); LYMPHOCYTES PERCENT AUTO 15 % (21-46); MONOCYTES PERCENT AUTO 11 % (4-13); Mean Corpuscular HGB 27.3 pg (26.0-34.0); Mean Corpuscular HGB Conc 32.1 g/dL (31.5-36.5); Mean Corpuscular Volume 85 fL (80-100); Mean Platelet Volume 8.3 fL (9.1-12.4); NEUTROPHILS ABSOLUTE AUTO 6.49 K/mm3 (1.96-9.15); NEUTROPHILS PERCENT AUTO 67 % (41-73); Platelet Count 286 K/mm3 (150-400); RDW Coefficient Variation 14.7 % (11.7-14.2); RDW Standard Deviation 45.8 fL (35.1-46.3); White Blood Cell Count 9.67 K/mm3 (4.00-11.30)
[2024-09-02 05:49] LABS: Albumin, Blood 2.9 g/dL (3.4-5.0); Anion Gap 9 mmol/L (3-11); Blood Urea Nitrogen 26 mg/dL (8-24); Bun/Creatinine Ratio 28.2 (12.0-20.0); CO2, Blood 31 mmol/L (21-32); Calcium, Blood 8.6 mg/dL (8.5-10.1); Chloride, Blood 98 mmol/L (98-108); Creatinine, Blood 0.92 mg/dL (0.60-1.20); Glomerular Filtration Rate 101 (60-); Glucose, Blood 128 mg/dL (70-99); Magnesium, Blood 1.9 mg/dL (1.6-2.4); Potassium, Blood 3.9 mmol/L (3.5-5.5); Sodium, Blood 134 mmol/L (136-145); Vancomycin, Trough 12.5 ug/mL (5.0-10.0)
[2024-09-02 07:24] VITALS: BP 155/91
[2024-09-02] MEDS ORDERED: Enoxaparin 40 MG/0.4 ML SYR SC SCH (09:00)
[2024-09-02] MEDS ORDERED: Melatonin 3 MG Tab PO PRN (12:55)
[2024-09-02 15:03] VITALS: BP 131/85
--- NOTE | 2024-09-02 16:10 | NUR ---
SHIFT SUMMARY MR CLAYTON HAS BLE EDEMA, RED PEELING SKIN TO RLE, PAIN TO RIGHT HIP AND RIGHT LEG, LESS PAIN TO LEFT LEG. PAIN UP TO 8/10, DOWN TO 5/10 AFTER OXY 10MG. REPOSITIONING HIMSELF INDEPENDENTLY, UP TO BR WITH STEADY GAIT. CT R LEG AND HIP DONE. DOPPLAR PULSES BLE. BED LOW, CALL LIGHT IN REACH.
[2024-09-02 20:20] VITALS: BP 124/84
[2024-09-03 04:52] VITALS: BP 117/71
[2024-09-03 04:55] LABS: Hematocrit 39.7 % (37.0-53.0); Hemoglobin 12.9 g/dL (13.5-17.5); Mean Corpuscular HGB 27.6 pg (26.0-34.0); Mean Corpuscular HGB Conc 32.5 g/dL (31.5-36.5); Mean Corpuscular Volume 85 fL (80-100); Mean Platelet Volume 8.3 fL (9.1-12.4); Platelet Count 284 K/mm3 (150-400); RDW Coefficient Variation 14.7 % (11.7-14.2); RDW Standard Deviation 45.1 fL (35.1-46.3); Red Blood Cell Count 4.67 M/mm3 (4.30-5.90); White Blood Cell Count 9.01 K/mm3 (4.00-11.30)
[2024-09-03 05:16] LABS: Bun/Creatinine Ratio 30.2 (12.0-20.0); Calcium, Blood 8.8 mg/dL (8.5-10.1); Creatinine, Blood 0.9 mg/dL (0.60-1.20); Magnesium, Blood 2.1 mg/dL (1.6-2.4); Phosphorus, Blood 4.2 mg/dL (2.5-4.9); Potassium, Blood 3.8 mmol/L (3.5-5.5)
--- NOTE | 2024-09-03 05:23 | NUR ---
SHIFT SUMMARY PT IS POLITE AND RECEPTIVE TO CARE. PER PT REQUEST WAS ADMINISTERED OXYCODONE 5MG AND THEN 10MG LATER ON IN THE NIGHT. PT WAS ABLE TO MAKE NEEDS KNOWN. RIGHT LOWER EXTREMITY IS DRY WITH EDEMA AND PEELING SKIN. PT APPEARED TO SLEEP ON AND OFF THROUGH THE NIGHT. BED IN LOWEST POSITION, CALL LIGHT WITHIN REACH, RAILS TIMES 2.
[2024-09-03 07:24] VITALS: BP 133/93
[2024-09-03] MEDS ORDERED: Polyethylene Glycol 3350 17 gm PO SCH (11:00)
[2024-09-03] MEDS ORDERED: Ketorolac Tromethamine 15mg Vial IV PRN (11:35)
[2024-09-03 11:49] VITALS: BP 132/85
[2024-09-03] MEDS ORDERED: Metolazone 2.5 MG Tab PO SCH (12:00)
[2024-09-03] MEDS ORDERED: CefTRIAXone Sodium 1,000 MG in NS 100 ML IV SCH (14:39)
[2024-09-03 17:20] VITALS: BP 134/71
--- NOTE | 2024-09-03 17:39 | NUR ---
Mr. Mcdermott is A&Ox4, Vitals stable, room air, denies chest pain and shortness of breath. Up ad-greg in room to bathroom, uses urinal at bedside. Pt reported hard stool this AM, miralax given. Pt reported that Oxycodone is effective for pain relief, but pain returns after three hours, MD ordered toredol, given with good effect. BLE edema, rt leg +3, L leg +2. Pt cooperative with care and compliant with fluid restriction.
[2024-09-03 20:34] VITALS: BP 133/87
[2024-09-03] MEDS ORDERED: Sennosides 8.6 MG Tab PO SCH (21:00)
[2024-09-03] MEDS ORDERED: Docusate Sodium 100 MG Cap PO SCH (21:00)
--- NOTE | 2024-09-04 03:21 | NUR ---
SHIFT SUMMARY PT IS A&O X4, ABLE TO MAKE HIS NEEDS KNOWN AND COOPERATIVE WITH CARE. PT C/O 07/16 LE PAIN; TORADOL IV ADMINISTERED X1, AND PRN OXYCODONE 10MG ADMINISTERED Q4HRS T/O THIS SHIFT, ORDERED. PT REPORTS GOOD EFFECTIVNESS. NO ACUTE EVENTS/DISTRESS NOTED/REPORTED DURING THIS SHIFT. BED AT THE LOWEST POSITION, CALL LIGHT W/I REACH.
[2024-09-04 04:08] VITALS: BP 129/73
[2024-09-04 05:21] LABS: BASOPHILS ABSOLUTE AUTO 0.09 K/mm3 (0.00-0.23); BASOPHILS PERCENT AUTO 1 % (0-2); EOSINOPHILS ABSOLUTE AUTO 0.19 K/mm3 (0.00-0.68); EOSINOPHILS PERCENT AUTO 2 % (0-6); Hematocrit 39.9 % (37.0-53.0); Hemoglobin 12.7 g/dL (13.5-17.5); IMMATURE GRAN ABSOLUTE AUTO 0.08 K/mm3 (0.00-0.10); IMMATURE GRAN PERCENT AUTO 1 % (0-1); LYMPHOCYTES ABSOLUTE AUTO 1.98 K/mm3 (0.84-5.20); LYMPHOCYTES PERCENT AUTO 22 % (21-46); MONOCYTES PERCENT AUTO 11 % (4-13); Mean Corpuscular HGB 27.3 pg (26.0-34.0); Mean Corpuscular HGB Conc 31.8 g/dL (31.5-36.5); Mean Corpuscular Volume 86 fL (80-100); Mean Platelet Volume 8.1 fL (9.1-12.4); NEUTROPHILS ABSOLUTE AUTO 5.81 K/mm3 (1.96-9.15); NEUTROPHILS PERCENT AUTO 64 % (41-73); Platelet Count 248 K/mm3 (150-400); RDW Coefficient Variation 14.7 % (11.7-14.2); RDW Standard Deviation 46.3 fL (35.1-46.3); Red Blood Cell Count 4.66 M/mm3 (4.30-5.90); White Blood Cell Count 9.15 K/mm3 (4.00-11.30)
[2024-09-04 05:41] LABS: Anion Gap 10 mmol/L (3-11); Blood Urea Nitrogen 40 mg/dL (8-24); Bun/Creatinine Ratio 41.8 (12.0-20.0); CO2, Blood 28 mmol/L (21-32); Chloride, Blood 101 mmol/L (98-108); Creatinine, Blood 0.96 mg/dL (0.60-1.20); Glomerular Filtration Rate 96 (60-); Glucose, Blood 83 mg/dL (70-99); Potassium, Blood 3.7 mmol/L (3.5-5.5); Sodium, Blood 135 mmol/L (136-145); Vancomycin, Trough 19.1 ug/mL (5.0-10.0)
[2024-09-04] MEDS ORDERED: NS 250 ML IV PRN (06:05)
[2024-09-04 07:39] VITALS: BP 142/91
[2024-09-04] MEDS ORDERED: Spironolactone 25 MG Tab PO SCH (09:00)
[2024-09-04] MEDS ORDERED: Miconazole Nitrate 2% 85 GM PWD TOP SCH (12:25)
[2024-09-04 15:30] VITALS: BP 140/94
--- NOTE | 2024-09-04 18:37 | NUR ---
Pt A&Ox4, cooperative with care. IV anitibiotics and diuretics continued. Pt complains of pain to both legs and hip, PRN Oxycodone and toradol given with good effect. Nystatin powder ordered and applied to redness on scrotum. Independent in room, cooperative with care, compliant with fluid restriction. Call light in reach, bed in low position.
[2024-09-04 19:45] VITALS: BP 127/83
[2024-09-05 02:05] VITALS: BP 139/80
--- NOTE | 2024-09-05 03:26 | NUR ---
SHIFT SUMMARY NO ACUTE EVENTS DURING THIS SHIFT. BG AT HS 118, PROTEIN/WHOLE WHEAT SNACK PROVIDED WITH SCHEDULED INSULIN. PT REPORTS PAIN 7-9/10 LE'S, HIP BILATERALLY. PT REPORTS Q4HR PRN OXYCODONE, AND PRN TORADOL EFFECTIVE. ANTI EMBOLISM STOCKINGS IN PLACE PER PT REQUEST. LE'S ELEVATED IN BED. INDEPENDENT IN THE ROOM. BED AT THE LOWEST POSITION, CALL LIGHT W/I REACH. PT IS ABLE TO MAKE HIS NEEDS KNOWN, AND IS COOPERATIVE WITH CARE.
[2024-09-05 07:12] VITALS: BP 121/68
[2024-09-05 09:06] LABS: Bun/Creatinine Ratio 42.3 (12.0-20.0); Calcium, Blood 9.8 mg/dL (8.5-10.1); Creatinine, Blood 0.99 mg/dL (0.60-1.20); Potassium, Blood 4.3 mmol/L (3.5-5.5)
[2024-09-05] MEDS ORDERED: Enoxaparin 40 MG/0.4 ML SYR SC SCH (13:00)
[2024-09-05] MEDS ORDERED: Metolazone 5 MG Tab PO SCH (15:00)
[2024-09-05] MEDS ORDERED: Bumetanide 0.25 MG/ML 4ML ViaL IV SCH ×2 (15:00→18:00)
[2024-09-05 16:32] VITALS: BP 130/73
[2024-09-05] MEDS ORDERED: Spironolactone 25 MG Tab PO SCH (18:00)
--- NOTE | 2024-09-05 18:13 | NUR ---
SHIFT SUMMARY MR CLAYTON IS UP AMBULATING IN ROOM AND TO BATHROOM WITH STEADY GAIT. RIGHT CALF 17.5". LEFT CALF 16". PT HAS KNEE HIGH TEDS ON. RIGHT LEG WITH PEELING SKIN. REDNESS TO BLE. ABDOMEN DISTENDED, FIRM AND PINK. SCROTAL SWELLING AND REDNESS, NYSTATIN POWDER TO SCROTUM. C/O PAIN TO RIGHT LEG AND RIGHT HIP REQUESTING REGULAR ANALGESICS. PT ON FLUID RESTRICTION AND I&OS MEASURED, BUT WEIGHT GAIN NOTED. LEGS LOOK LESS SWOLLEN THAN MONDAY. BED LOW, CALL LIGHT IN REACH.
[2024-09-05 19:36] VITALS: BP 127/70
[2024-09-05] MEDS ORDERED: Famotidine 20 MG Tab PO SCH (21:00)
[2024-09-06 02:26] VITALS: BP 129/75
--- NOTE | 2024-09-06 04:32 | NUR ---
SHIFT SUMMARY NO ACUTE EVENTS DURING THIS SHIFT. HS B. INSULIN ADMINISTERED ORDERED WITH HIGH PROTEIN/WHOLE WHEAT SNACK. PT C/O 8-07/16 BILATERAL LE PAIN. MEDICATED ORDERED WITH PRN Q4HR PO OXYCODONE 10MG T/O THIS SHIFT AND PRN PRN IV TORADOL. PT REPORTS EFFECTIVE. PER PT STATEMENT IN NO HURRY TO LEAVE FROM THE HOSPITAL. PT KEEPING TRACK HIS I&O'S/COMPLIENT WITH FLUID RESTRICTION. TEDHOSE REMOVED DURING THE HS. BILATERAL +2 EDEMA LE'S. BED AT THE LOWEST POSITION, CALL LIGHT W/I REACH. PT IS ABLE TO MAKE HIS NEEDS KNOWN, AND IS COOPERATIVE WITH CARE.
[2024-09-06 06:37] LABS: BASOPHILS ABSOLUTE AUTO 0.09 K/mm3 (0.00-0.23); BASOPHILS PERCENT AUTO 1 % (0-2); EOSINOPHILS ABSOLUTE AUTO 0.18 K/mm3 (0.00-0.68); EOSINOPHILS PERCENT AUTO 3 % (0-6); Hematocrit 31.1 % (37.0-53.0); IMMATURE GRAN ABSOLUTE AUTO 0.06 K/mm3 (0.00-0.10); IMMATURE GRAN PERCENT AUTO 1 % (0-1); LYMPHOCYTES ABSOLUTE AUTO 1.53 K/mm3 (0.84-5.20); LYMPHOCYTES PERCENT AUTO 22 % (21-46); MONOCYTES PERCENT AUTO 10 % (4-13); Mean Corpuscular HGB 27.9 pg (26.0-34.0); Mean Corpuscular HGB Conc 32.2 g/dL (31.5-36.5); Mean Corpuscular Volume 87 fL (80-100); Mean Platelet Volume 8.7 fL (9.1-12.4); NEUTROPHILS ABSOLUTE AUTO 4.55 K/mm3 (1.96-9.15); NEUTROPHILS PERCENT AUTO 64 % (41-73); Platelet Count 214 K/mm3 (150-400); RDW Coefficient Variation 14.6 % (11.7-14.2); RDW Standard Deviation 46.1 fL (35.1-46.3); Red Blood Cell Count 3.59 M/mm3 (4.30-5.90); White Blood Cell Count 7.11 K/mm3 (4.00-11.30)
[2024-09-06 07:02] LABS: Anion Gap 11 mmol/L (3-11); Blood Urea Nitrogen 69 mg/dL (8-24); Bun/Creatinine Ratio 65.7 (12.0-20.0); CO2, Blood 29 mmol/L (21-32); Calcium, Blood 9.1 mg/dL (8.5-10.1); Chloride, Blood 102 mmol/L (98-108); Creatinine, Blood 1.05 mg/dL (0.60-1.20); Glomerular Filtration Rate 86 (60-); Glucose, Blood 133 mg/dL (70-99); Potassium, Blood 4.8 mmol/L (3.5-5.5); Sodium, Blood 137 mmol/L (136-145)
[2024-09-06 07:03] LABS: Vancomycin, Trough 22.3 ug/mL (5.0-10.0)
[2024-09-06 07:15] VITALS: BP 108/62
[2024-09-06] MEDS ORDERED: OxyCODONE HCL 5 MG TAB PO PRN (11:03)
[2024-09-06] MEDS ORDERED: Vancomycin HCL 1,750 MG in NS 500 ML IV SCH (12:00)
[2024-09-06 14:56] VITALS: BP 131/77
--- NOTE | 2024-09-06 15:25 | NUR ---
SHIFT SUMMARY MR CLAYTON IS AMBULATING INDEPENDENTLY IN HIS ROOM/BATHROOM WITH STEADY GAIT. HE IS ENCOURAGED BY 9LB WEIGHT LOSS ON DAILY WEIGHT AND ADHERING TO FLUID RESTRICTION WELL. HE STILL C/O LEG PAIN 06/15, BUT DID SAY THAT IT'S GETTING BETTER AND THAT BY TOMORROW HE FEELS LIKE HE'LL BE OK WITHOUT OXYCODONE. OXYCODONE REDUCED TO Q6HRS PRN TODAY. NO C/O SOB. BED LOW, CALL LIGHT IN REACH.
[2024-09-06 19:24] VITALS: BP 120/73
[2024-09-06] MEDS ORDERED: Pantoprazole Sodium 40 MG Injection IV ONE (21:00)
[2024-09-06 21:26] LABS: Hematocrit 32.7 % (37.0-53.0); Hemoglobin 10.7 g/dL (13.5-17.5)
[2024-09-06 22:38] LABS: Adenovirus F 40/41 Not Detected (NOT DETECT); Astrovirus Not Detected (NOT DETECT); Campylobacter Sp Not Detected (NOT DETECT); Cryptosporidium Not Detected (NOT DETECT); Cyclospora Cayetanensis Not Detected (NOT DETECT); E. Coli O157 Not Detected (NOT DETECT); Entamoeba Histolytica Not Detected (NOT DETECT); Enteroaggregative E. coli-EAEC Not Detected (NOT DETECT); Enteropathogenic E. coli-EPEC Detected (NOT DETECT); Enterotoxigenic E. coli-ETEC Not Detected (NOT DETECT); Giardia Lamblia Not Detected (NOT DETECT); Norovirus GI/GII Not Detected (NOT DETECT); Plesiomonas Shigelloides Not Detected (NOT DETECT); Rotavirus A Not Detected (NOT DETECT); Salmonella Sp Not Detected (NOT DETECT); Sapovirus Not Detected (NOT DETECT); Shiga Toxin-prod E. coli-STEC Not Detected (NOT DETECT); Shigella/Enteroin E. coli-EIEC Not Detected (NOT DETECT); Vibrio Cholerae Not Detected (NOT DETECT); Vibrio Sp Not Detected (NOT DETECT); Yersinia Enterocolitica Not Detected (NOT DETECT)
--- NOTE | 2024-09-07 04:59 | NUR ---
SHIFT SUMMARY A&OX4. PT PLEASANT & COOPERATIVE OVERNIGHT. ENDORSES PAIN TO RLE, DESCRIBES INTERMITTENT THROBBING & SHARP PAINS. MANAGED PAIN UTILIZING NPIS AND PER EMAR. PT HAD SEVERAL BLACK, TARRY, LOOSE STOOLS OVERNIGHT. MADE AWARE, STAT LABS ORDERED. VSS. PT ENDORSES ANXIETY R/T STOOL APPEARANCE, STATES "IT FEELS LIKE IT IS JUST ONE PROBLEM AFTER ANOTHER", TEARFUL. SHOWER & SELF CARE AT SINK COMPLETED BY PT. PT ABLE TO REST DURING SHIFT. PT VOICED UNDERSTANDING OF PLAN OF CARE, DENIES QUESTIONS/CONCERNS AT THIS TIME. ABLE TO VOICE NEEDS. CALL LIGHT IN REACH.
[2024-09-07 05:24] VITALS: BP 128/59
[2024-09-07 05:44] LABS: BASOPHILS PERCENT AUTO 1 % (0-2); EOSINOPHILS ABSOLUTE AUTO 0.19 K/mm3 (0.00-0.68); EOSINOPHILS PERCENT AUTO 3 % (0-6); Hematocrit 31.5 % (37.0-53.0); Hemoglobin 10.3 g/dL (13.5-17.5); IMMATURE GRAN ABSOLUTE AUTO 0.06 K/mm3 (0.00-0.10); IMMATURE GRAN PERCENT AUTO 1 % (0-1); LYMPHOCYTES ABSOLUTE AUTO 1.58 K/mm3 (0.84-5.20); LYMPHOCYTES PERCENT AUTO 21 % (21-46); MONOCYTES ABSOLUTE AUTO 0.79 K/mm3 (0.16-1.47); MONOCYTES PERCENT AUTO 10 % (4-13); Mean Corpuscular HGB 28.1 pg (26.0-34.0); Mean Corpuscular HGB Conc 32.7 g/dL (31.5-36.5); Mean Corpuscular Volume 86 fL (80-100); Mean Platelet Volume 8.8 fL (9.1-12.4); NEUTROPHILS ABSOLUTE AUTO 4.93 K/mm3 (1.96-9.15); NEUTROPHILS PERCENT AUTO 64 % (41-73); Platelet Count 248 K/mm3 (150-400); RDW Coefficient Variation 14.9 % (11.7-14.2); RDW Standard Deviation 46.5 fL (35.1-46.3); Red Blood Cell Count 3.66 M/mm3 (4.30-5.90); White Blood Cell Count 7.65 K/mm3 (4.00-11.30)
[2024-09-07] MEDS ORDERED: Pantoprazole Sodium 40 MG Injection IV SCH (06:00)
[2024-09-07 06:37] LABS: Bun/Creatinine Ratio 54.5 (12.0-20.0); Creatinine, Blood 1.23 mg/dL (0.60-1.20); Potassium, Blood 4.2 mmol/L (3.5-5.5)
[2024-09-07 07:14] VITALS: BP 140/77
[2024-09-07] MEDS ORDERED: Ciprofloxacin 500 MG Tab PO SCH (09:00)
[2024-09-07] MEDS ORDERED: TraMADol HCl 50 MG Tab PO PRN (11:25)
[2024-09-07] MEDS ORDERED: Acetaminophen 500 MG Tab PO PRN (11:25)
[2024-09-07 15:04] VITALS: BP 126/66
--- NOTE | 2024-09-07 16:52 | NUR ---
SHIFT SUMMARY MR CLAYTON SEEMS MORE COMFORTABLE TODAY. WEIGHT LOSS OF 9.7LBS ON DAILY WEIGHT SINCE YESTERDAY. MINIMAL STOOL OUTPUT THIS SHIFT, THE SMALL STOOL HE HAD PT DESCRIBED DARK/BLACK. NO DIZZYNESS, UP AMBULATING IN ROOM INDEPENDENTLY WITH STEADY GAIT. UPDATED PHOTOS IN CHART OF RIGHT FOOT AND LEG. SCD'S ON. IN CHAIR, CALL LIGHT IN REACH.
[2024-09-07 17:31] VITALS: BP 126/60
[2024-09-07 20:05] VITALS: BP 117/54
[2024-09-08 04:39] VITALS: BP 130/69
--- NOTE | 2024-09-08 04:48 | NUR ---
SHIFT SUMMARY PATIENT STILL HAS PAIN IN BLE, BUT HIS SCROTAL PAIN IS ALMOST GONE. MEDICATED TWICE FOR PAIN SPENT MOST OF THE NIGHT IN THE RECLINER.
[2024-09-08 04:56] LABS: BASOPHILS PERCENT AUTO 1 % (0-2); EOSINOPHILS PERCENT AUTO 3 % (0-6); Hematocrit 30.8 % (37.0-53.0); IMMATURE GRAN ABSOLUTE AUTO 0.03 K/mm3 (0.00-0.10); IMMATURE GRAN PERCENT AUTO 0 % (0-1); LYMPHOCYTES ABSOLUTE AUTO 1.61 K/mm3 (0.84-5.20); LYMPHOCYTES PERCENT AUTO 23 % (21-46); MONOCYTES ABSOLUTE AUTO 0.85 K/mm3 (0.16-1.47); MONOCYTES PERCENT AUTO 12 % (4-13); Mean Corpuscular HGB 27.9 pg (26.0-34.0); Mean Corpuscular HGB Conc 32.5 g/dL (31.5-36.5); Mean Corpuscular Volume 86 fL (80-100); Mean Platelet Volume 8.7 fL (9.1-12.4); NEUTROPHILS ABSOLUTE AUTO 4.35 K/mm3 (1.96-9.15); NEUTROPHILS PERCENT AUTO 61 % (41-73); Platelet Count 242 K/mm3 (150-400); RDW Coefficient Variation 14.7 % (11.7-14.2); RDW Standard Deviation 45.9 fL (35.1-46.3); Red Blood Cell Count 3.59 M/mm3 (4.30-5.90); White Blood Cell Count 7.14 K/mm3 (4.00-11.30)
[2024-09-08 05:29] LABS: Bun/Creatinine Ratio 46.7 (12.0-20.0); Calcium, Blood 9.7 mg/dL (8.5-10.1); Creatinine, Blood 1.22 mg/dL (0.60-1.20); Potassium, Blood 4.4 mmol/L (3.5-5.5)
[2024-09-08 07:20] VITALS: BP 114/89
[2024-09-08] MEDS ORDERED: Lidocaine 4% 1 Patch TOP SCH (09:00)
--- NOTE | 2024-09-08 17:09 | NUR ---
SHIFT SUMMARY: PT AOX4 AND PACING AROUND THE ROOM. CHANGED PAIN MANAGEMTN TO STAGGER THE TRAMADOL AND TYLENOL SO THAT THEY ARE 3 HRS APART. HAS BEEN HELPING. PUT ON COMPRESSION STOCKINGS WITH NON SLIP SOCKS AND SCDS WHICH HAS HELPED WITH SOME EDEMA AND SWELLING. PT TOLERATING DIURESING AND FLUID RESTRICTION WELL. HAS HAD GOOD OUTPUT. MAKES NEEDS KNOWN AND HAS HAD PAIN CONTROLLED SINCH CHANGING REGIMENT. SEEMS MUCH MORE MOTIVATED TO GET BETTER AND MANAGE THEIR CONDITION. RESTING IN BED, BED IN LOWEST POSITION, CALL LIGHT IN REACH. CONTINUING CARE.
[2024-09-08 19:42] VITALS: BP 111/74
[2024-09-09] MEDS ORDERED: OxyCODONE HCL 5 MG TAB PO PRN (00:40)
[2024-09-09 05:23] VITALS: BP 138/76
--- NOTE | 2024-09-09 05:48 | NUR ---
HOTEL DESK CLERK SUMMARY PT EXPERIENCED SUDDEN SEVERE THROBBING/STABBING PAIN TO HIS RLE. HE WAS CRYING, SWEATING AND ASKING FOR A DOCTOR BECAUSE HE WAS WORRIED HIS LEG WAS ABOUT TO "FALL OFF". HE APPEARED VERY PANICKED. HIS POST-TIB PULSES AND PEDAL PULSES ARE WEAK BUT PRESENT AND HIS CAP REFILL WAS ADEQUATE. NO SIGNS OF REDUCED CIRCULATION. TYLENOL/TRADAMOL NOT EFFECTIVE AND PT CONTINUED TO CRY AND PANIC. MD ORDERED 5MG OXYCODONE AND THIS WAS VERY EFFECTIVE FOR PT. NO OTHER ISSUES OVERNIGHT. PT COMPLIANT WITH FLUID RESTRICTION AND CONTINUES TO DIURESE WELL.
[2024-09-09 07:26] VITALS: BP 127/66
[2024-09-09 08:27] LABS: BASOPHILS ABSOLUTE AUTO 0.09 K/mm3 (0.00-0.23); BASOPHILS PERCENT AUTO 1 % (0-2); EOSINOPHILS ABSOLUTE AUTO 0.16 K/mm3 (0.00-0.68); EOSINOPHILS PERCENT AUTO 2 % (0-6); Hematocrit 30.3 % (37.0-53.0); IMMATURE GRAN ABSOLUTE AUTO 0.03 K/mm3 (0.00-0.10); IMMATURE GRAN PERCENT AUTO 0 % (0-1); LYMPHOCYTES ABSOLUTE AUTO 1.52 K/mm3 (0.84-5.20); LYMPHOCYTES PERCENT AUTO 22 % (21-46); MONOCYTES ABSOLUTE AUTO 0.83 K/mm3 (0.16-1.47); MONOCYTES PERCENT AUTO 12 % (4-13); Mean Corpuscular HGB 28.3 pg (26.0-34.0); Mean Corpuscular Volume 86 fL (80-100); Mean Platelet Volume 8.9 fL (9.1-12.4); NEUTROPHILS PERCENT AUTO 63 % (41-73); Platelet Count 229 K/mm3 (150-400); RDW Coefficient Variation 14.9 % (11.7-14.2); RDW Standard Deviation 46.3 fL (35.1-46.3); Red Blood Cell Count 3.53 M/mm3 (4.30-5.90); White Blood Cell Count 7.03 K/mm3 (4.00-11.30)
[2024-09-09 08:43] LABS: Bun/Creatinine Ratio 37.1 (12.0-20.0); Calcium, Blood 9.1 mg/dL (8.5-10.1); Creatinine, Blood 1.16 mg/dL (0.60-1.20); Potassium, Blood 3.8 mmol/L (3.5-5.5)
--- NOTE | 2024-09-09 09:00 | NUR ---
pt laying in bed with eyes closed, wakes easily, sat up on side of bed for medications, a/ox4, pleasant and cooperative with care, follows commands well, denies pain at this time, lungs are clear in upper hess, dim in bases, resp even and unlabored, no cough noted, on r/a, hrr, edema noted to b/l le, +2 on left +3 on right, cap refill <3 sec, vs stable, afebrile, piv to rfa site is clear and patent, btx4, abd flat soft nontender, voids without diff, skin has rash to oydit area, otherwise, b/l le are pink peeling, bottom of right foot is peeling thick skin, and has a dime size sore to lateral ball of foot, wants lidocain patches to bottom of feet, maew, up indep, shane, call light in reach.
[2024-09-09 15:37] VITALS: BP 124/82
--- NOTE | 2024-09-09 18:25 | NUR ---
pt sitting up in chair watching tv, states he's feeling better, no acute changes this shift. medicated for pain twice today, call light in reach.
[2024-09-09 19:08] VITALS: BP 126/73
[2024-09-09] MEDS ORDERED: Baclofen 10 MG Tab PO SCH (21:00)
[2024-09-10 02:15] VITALS: BP 122/74
[2024-09-10 06:23] LABS: BASOPHILS ABSOLUTE AUTO 0.09 K/mm3 (0.00-0.23); BASOPHILS PERCENT AUTO 1 % (0-2); EOSINOPHILS ABSOLUTE AUTO 0.13 K/mm3 (0.00-0.68); EOSINOPHILS PERCENT AUTO 2 % (0-6); Hematocrit 34.1 % (37.0-53.0); Hemoglobin 10.9 g/dL (13.5-17.5); IMMATURE GRAN ABSOLUTE AUTO 0.03 K/mm3 (0.00-0.10); IMMATURE GRAN PERCENT AUTO 0 % (0-1); LYMPHOCYTES ABSOLUTE AUTO 1.85 K/mm3 (0.84-5.20); LYMPHOCYTES PERCENT AUTO 23 % (21-46); MONOCYTES ABSOLUTE AUTO 0.98 K/mm3 (0.16-1.47); MONOCYTES PERCENT AUTO 12 % (4-13); Mean Corpuscular HGB 27.8 pg (26.0-34.0); Mean Corpuscular Volume 87 fL (80-100); Mean Platelet Volume 8.4 fL (9.1-12.4); NEUTROPHILS ABSOLUTE AUTO 4.95 K/mm3 (1.96-9.15); NEUTROPHILS PERCENT AUTO 62 % (41-73); Platelet Count 271 K/mm3 (150-400); RDW Standard Deviation 47.4 fL (35.1-46.3); Red Blood Cell Count 3.92 M/mm3 (4.30-5.90); White Blood Cell Count 8.03 K/mm3 (4.00-11.30)
--- NOTE | 2024-09-10 06:43 | NUR ---
SHIFT SUMMARY: Pt is admitted for cellulitis and is a full code. Is alert and able to make needs known. ADLs have been IND. pain has been managed with PRN pain management.
[2024-09-10 06:56] LABS: Bun/Creatinine Ratio 36.2 (12.0-20.0); Calcium, Blood 10.2 mg/dL (8.5-10.1); Creatinine, Blood 1.3 mg/dL (0.60-1.20)
[2024-09-10 07:10] VITALS: BP 132/71
[2024-09-10] MEDS ORDERED: SPIR25 PO (11:57)
[2024-09-10] MEDS ORDERED: BUME1 PO (11:58)
[2024-09-10] MEDS ORDERED: POTA10T PO (11:59)
--- NOTE | 2024-09-10 12:20 | NUR ---
COLLECTED PT BELONGINGS, TO SEND HOME. IV REMOVED BY LEAD MECHANICAL ENGINEER. DISCHARGE INSTRUCTIONS WENT OVER WITH NO FURTHER QUESTIONS.
--- NOTE | 2024-09-10 12:21 | NUR ---
ATTEMPTED TO CALL PT AND PT BROTHER WHO IS NEXT OF KIN, DR. POWER LEFT A HARD SCRIPT FOR LABWORK AT PCP. NEITHER ANSWERED. MESSAGE LEFT.
== END 2024-09-10 13:41 | disposition home or self-care (01) | DRG 871 ==
LOC: ER 01:58 → ERHOLD 05:30 → MEDS 05:30
PROVIDERS: Emergency Medicine; Internal Medicine; Nurse Practitioner Acute Care; ADMIT Student in an Organized Health Care Education/Training Program
DX: A41.9 Sepsis, unspecified organism (principal); I50.23 Acute on chronic systolic (congestive) heart failure; L03.115 Cellulitis of right lower limb; A04.4 Other intestinal Escherichia coli infections; E87.1 Hypo-osmolality and hyponatremia; K92.1 Melena; N17.9 Acute kidney failure, unspecified; I25.5 Ischemic cardiomyopathy; G47.00 Insomnia, unspecified; I11.0 Hypertensive heart disease with heart failure; F15.10 Other stimulant abuse, uncomplicated; N40.0 Benign prostatic hyperplasia without lower urinary tract symptoms; Z90.89 Acquired absence of other organs; K64.9 Unspecified hemorrhoids; Z98.890 Other specified postprocedural states; F17.210 Nicotine dependence, cigarettes, uncomplicated; Z79.899 Other long term (current) drug therapy; Z79.82 Long term (current) use of aspirin; Z79.4 Long term (current) use of insulin; M25.551 Pain in right hip; Z71.51 Drug abuse counseling and surveillance of drug abuser; E66.01 Morbid (severe) obesity due to excess calories; Z68.31 Body mass index [BMI] 31.0-31.9, adult; Z53.29 Procedure and treatment not carried out because of patient's decision for other reasons
CPT/HCPCS: 36415; 73701; 80048; 80053; 80069; 80202; 82947; 83605; 83735; 84100; 85014; 85018; 85025; 85027; 85379; 87040; 87507; 93970; 96365; 99281; 99285-25; A9270; J0690; J0696; J1650; J1815; J1885; J1940; J2470; J3370; J7040; J7050; Q9967

== ENCOUNTER 2025-02-10 18:12 | Inpatient (IN) | payer OTHER ==
[~2025-02-10] VITALS: Ht 185.4 cm; Wt 114.8 kg
[~2025-02-10 18:12] MED LIST changes: +BUME1 PO; +POTA10T PO; +SPIR25 PO
[2025-02-10 18:51] LABS: BASOPHILS ABSOLUTE AUTO 0.04 K/mm3 (0.00-0.23); BASOPHILS PERCENT AUTO 0 % (0-2); EOSINOPHILS ABSOLUTE AUTO 0.07 K/mm3 (0.00-0.68); EOSINOPHILS PERCENT AUTO 1 % (0-6); Hematocrit 42.6 % (37.0-53.0); Hemoglobin 13.9 g/dL (13.5-17.5); IMMATURE GRAN ABSOLUTE AUTO 0.08 K/mm3 (0.00-0.10); IMMATURE GRAN PERCENT AUTO 1 % (0-1); LYMPHOCYTES ABSOLUTE AUTO 0.69 K/mm3 (0.84-5.20); LYMPHOCYTES PERCENT AUTO 5 % (21-46); MONOCYTES ABSOLUTE AUTO 0.78 K/mm3 (0.16-1.47); MONOCYTES PERCENT AUTO 6 % (4-13); Mean Corpuscular HGB 24.2 pg (26.0-34.0); Mean Corpuscular HGB Conc 32.6 g/dL (31.5-36.5); Mean Corpuscular Volume 74 fL (80-100); Mean Platelet Volume 8.6 fL (9.1-12.4); NEUTROPHILS ABSOLUTE AUTO 12.49 K/mm3 (1.96-9.15); NEUTROPHILS PERCENT AUTO 88 % (41-73); Platelet Count 191 K/mm3 (150-400); RDW Coefficient Variation 18.5 % (11.7-14.2); RDW Standard Deviation 48.5 fL (35.1-46.3); Red Blood Cell Count 5.74 M/mm3 (4.30-5.90); White Blood Cell Count 14.15 K/mm3 (4.00-11.30)
[2025-02-10 19:08] LABS: Albumin, Blood 2.9 g/dL (3.4-5.0); Albumin/Globulin Ratio 0.8 (0.8-1.8); Bilirubin, Total 3.3 mg/dL (0.1-1.0); Bun/Creatinine Ratio 23.4 (12.0-20.0); Calcium, Blood 8.8 mg/dL (8.5-10.1); Creatinine, Blood 1.11 mg/dL (0.60-1.20); Globulin, Blood 3.8 g/dL (2.2-4.0); Potassium, Blood 4.1 mmol/L (3.5-5.5); Total Protein, Blood 6.7 g/dL (6.4-8.2)
[2025-02-10] MEDS ORDERED: NS 1,000 ML IV SCH ×2 (19:15→21:40)
[2025-02-10] MEDS ORDERED: Metoclopramide HCl 5MG / ML 2ML Vial IV ONE (19:15)
[2025-02-10] MEDS ORDERED: Clindamycin 900mg in D5W 50ML 50 ML IV ONE (19:15)
[2025-02-10] MEDS ORDERED: OxyCODONE HCL 5 MG TAB PO PRN (21:40)
[2025-02-10] MEDS ORDERED: Ondansetron HCl 2 MG / ML 2ML Vial IV PRN (21:40)
[2025-02-10] MEDS ORDERED: Vancomycin HCL 2,000 MG in NS 500 ML IV ONE (21:55)
[2025-02-10] MEDS ORDERED: CeFAZolin Sodium 2,000 MG in NS 100 ML IV SCH (22:00)
[2025-02-10] MEDS ORDERED: OxyCODONE HCL 5 MG TAB PO ONE (22:00)
[2025-02-11] VITALS (7 sets, daily range): BP systolic 118–139; BP diastolic 76–104
[2025-02-11 04:00] LABS: BASOPHILS ABSOLUTE AUTO 0.04 K/mm3 (0.00-0.23); BASOPHILS PERCENT AUTO 0 % (0-2); EOSINOPHILS ABSOLUTE AUTO 0.03 K/mm3 (0.00-0.68); EOSINOPHILS PERCENT AUTO 0 % (0-6); Hemoglobin 13.9 g/dL (13.5-17.5); IMMATURE GRAN ABSOLUTE AUTO 0.07 K/mm3 (0.00-0.10); IMMATURE GRAN PERCENT AUTO 1 % (0-1); LYMPHOCYTES ABSOLUTE AUTO 0.95 K/mm3 (0.84-5.20); LYMPHOCYTES PERCENT AUTO 8 % (21-46); MONOCYTES ABSOLUTE AUTO 1.13 K/mm3 (0.16-1.47); MONOCYTES PERCENT AUTO 9 % (4-13); Mean Corpuscular HGB 23.5 pg (26.0-34.0); Mean Corpuscular HGB Conc 30.9 g/dL (31.5-36.5); Mean Corpuscular Volume 76 fL (80-100); Mean Platelet Volume 8.7 fL (9.1-12.4); NEUTROPHILS ABSOLUTE AUTO 10.44 K/mm3 (1.96-9.15); NEUTROPHILS PERCENT AUTO 83 % (41-73); Platelet Count 170 K/mm3 (150-400); RDW Coefficient Variation 18.8 % (11.7-14.2); RDW Standard Deviation 50.4 fL (35.1-46.3); Red Blood Cell Count 5.92 M/mm3 (4.30-5.90); White Blood Cell Count 12.66 K/mm3 (4.00-11.30)
[2025-02-11 04:24] LABS: International Normalized Ratio 1.37; Prothrombin Time Results 14.3 Sec (9.7-11.5)
[2025-02-11 04:32] LABS: Albumin, Blood 2.7 g/dL (3.4-5.0); Albumin/Globulin Ratio 0.6 (0.8-1.8); Bilirubin, Total 2.6 mg/dL (0.1-1.0); Bun/Creatinine Ratio 23.2 (12.0-20.0); Calcium, Blood 8.1 mg/dL (8.5-10.1); Creatinine, Blood 1.12 mg/dL (0.60-1.20); Globulin, Blood 4.2 g/dL (2.2-4.0); Magnesium, Blood 1.6 mg/dL (1.6-2.4); Total Protein, Blood 6.9 g/dL (6.4-8.2)
[2025-02-11] MEDS ORDERED: Magnesium Sulf 2 GM/Water 50ML 50 ML IV ONE (06:50)
[2025-02-11] MEDS ORDERED: Insulin Human Lispro 100 Units/ML 3ML Syringe SC SCH (07:30)
[2025-02-11] MEDS ORDERED: Aspirin 81 MG Chew PO SCH (09:00)
[2025-02-11] MEDS ORDERED: Metoprolol Succinate 50 MG TABCR PO SCH (09:00)
[2025-02-11] MEDS ORDERED: Lactobacil 2-S.Thermo-Bifido 1 1 Cap PO SCH (09:00)
[2025-02-11] MEDS ORDERED: Enoxaparin 40 MG/0.4 ML SYR SC SCH (09:00)
[2025-02-11] MEDS ORDERED: Empagliflozin 10 MG TAB PO SCH (09:00)
[2025-02-11] MEDS ORDERED: Tamsulosin HCl 0.4 MG Cap PO SCH (09:00)
[2025-02-11 10:52] LABS: U Amphetamine Screen DETECTED; U Barbituate Screen Not Detected; U Benzodiazapine Screen Not Detected; U Buprenorphine Screen Not Detected; U Cannabinoids Screen Not Detected; U Cocaine Screen Not Detected; U Methadone Screen Not Detected; U Methamphetamine Screen DETECTED; U Opiates Screen Not Detected; U Oxycodone Screen DETECTED; U Phencyclidine Screen Not Detected
[2025-02-11] MEDS ORDERED: Vancomycin HCL 1,500 MG in NS 250 ML IV SCH (11:00)
[2025-02-11 18:19] LABS: Bun/Creatinine Ratio 26.7 (12.0-20.0); Calcium, Blood 8.7 mg/dL (8.5-10.1); Creatinine, Blood 1.05 mg/dL (0.60-1.20); Potassium, Blood 3.9 mmol/L (3.5-5.5)
--- NOTE | 2025-02-11 18:58 | NUR ---
End of shift note. Pt has been pleasant and cooperative with cares this shift. UA was sent this morning. Fair PO intake this shift. CBGs checked ACHS 99, 160, 151. Complaints of pain to back and RLE. Medicated per MAR. Na levels trending most recent draw 129. No new orders, redraw with AM labs. Pt is able to make needs known, call light is within reach.
[2025-02-11] MEDS ORDERED: Calcium Carbonate 500 MG Tab Chew PO PRN (20:05)
[2025-02-11] MEDS ORDERED: Insulin Glargine-Yfgn 100 Unit/mL 3 ML SYR SC SCH (21:00)
[2025-02-12 04:22] VITALS: BP 134/90
--- NOTE | 2025-02-12 04:35 | NUR ---
UPDATE PCT CAME TO THIS RN STATING THAT PATIENT PULLED OFF TELE AND IS DECLINING TO WEAR AT THIS TIME. THIS RN TO ROOM TO SPEAK WITH PATIENT. PATIENT STATING "THIS THING IS ANNOYING AND I CAN'T MOVE AROUND". NO EVENTS NOTED ON TELE. BP HAS REMAINED STABLE DURING THE NIGHT. CALL PLACED TO RESIDENT WITH UPDATE. ORDER FOR STATUS CHANGE TO MEDICAL AND DC TELE.
[2025-02-12 04:47] LABS: Hematocrit 44.4 % (37.0-53.0); Hemoglobin 13.8 g/dL (13.5-17.5); Mean Corpuscular HGB 23.8 pg (26.0-34.0); Mean Corpuscular HGB Conc 31.1 g/dL (31.5-36.5); Mean Corpuscular Volume 77 fL (80-100); Mean Platelet Volume 8.7 fL (9.1-12.4); Platelet Count 162 K/mm3 (150-400); RDW Coefficient Variation 18.9 % (11.7-14.2); RDW Standard Deviation 50.4 fL (35.1-46.3)
[2025-02-12 05:11] LABS: Albumin, Blood 2.7 g/dL (3.4-5.0); Anion Gap 13 mmol/L (3-11); Blood Urea Nitrogen 35 mg/dL (8-24); CO2, Blood 23 mmol/L (21-32); Calcium, Blood 8.1 mg/dL (8.5-10.1); Chloride, Blood 95 mmol/L (98-108); Creatinine, Blood 1.13 mg/dL (0.60-1.20); Glomerular Filtration Rate 79 (60-); Glucose, Blood 164 mg/dL (70-99); Magnesium, Blood 2.1 mg/dL (1.6-2.4); Phosphorus, Blood 3.2 mg/dL (2.5-4.9); Potassium, Blood 4.1 mmol/L (3.5-5.5); Sodium, Blood 127 mmol/L (136-145)
--- NOTE | 2025-02-12 05:46 | NUR ---
SHIFT SUMMARY PATIENT ALERT, ORIENTED x4. ABLE TO MAKE NEEDS KNOWN TO STAFF. BP STABLE. ON RA WITH SPO2 >90%. TELE REMOVED DURING THIS SHIFT, SEE PREVIOUS NOTE. PATIENT USING URINAL TO VOID, ADEQUATE OUTPUT. PATIENT AMBULATED INTO BATHROOM AND SHOWERED INDEPENDENTLY. RIGHT LEG CONTINUES TO BE SWOLLEN AND WARM TO TOUCH BUT HAS NOT PROGRESSED OUT OF MARKED AREA. MEDICATED PER EMAR FOR PAIN. NO OTHER CHANGES, WILL REPORT TO DAY SHIFT RN.
[2025-02-12 09:05] VITALS: BP 129/88
[2025-02-12] MEDS ORDERED: MAGNESIUM OXID500 MG PO (10:35)
[2025-02-12 10:50] LABS: Vancomycin, Trough 18.6 ug/mL (5.0-10.0)
[2025-02-12] MEDS ORDERED: Spironolactone 50 MG Tab PO SCH (11:00)
--- NOTE | 2025-02-12 12:52 | NUR ---
UPDATE: NURSE LEADER AT BEDSIDE TO CHECK ON PT. NURSE LEADER INFORMED THIS RN THAT PT REPORTS FEELING ANXIOUS, AND A " SENSE OF INPENDING DOOM". PT ALSO REPORTING INDEGESTION AFTER EATING LUNCH. PT ASKED IF HE WOULD LIKE TO RECIEVE A VISIT FROM SPIRITUAL CARE. PT AGREEABLE. ORDERE PLACED. PT MEDICATED WITH TUMS AND AN EKG WAS PERFORMED. PROVIDER NOTIFIED AND AGREEABLE TO AN ANXIETY MED FOR PT. PT DENIES ANY FURTHER NEEDS OR COMPLAINTS AT THIS TIME.
[2025-02-12] MEDS ORDERED: LORazepam 0.5 MG Tab PO PRN (13:00)
--- NOTE | 2025-02-12 16:08 | NUR ---
Upon receiving a referral for spiritual care, I visited the patient. He immediately tells me about the stressors in his life and about how he has been feeling anxious. He talks about his poor health, his 16 y/o dtr and his fears about the future. I normalized his experience and provided therapeutic listening, anxiety containment and prayer. Patient responded well and showed signs of reduced stress. He expressed gratitude and asked if I could visit him again tomorrow.
--- NOTE | 2025-02-12 16:32 | NUR ---
PT TRANSFERRED TO [facility] FLOOR FROM PCU. PT ADMITTED ON 02/10/25 FOR R LOWER LEG CELLULITIS. PT ABLE TO STAND AND AMBULATE INDEPENDENTLY FROM TO HOSPITAL BED. PT REPORTS 7/10 PAIN THAT IS TOLERABLE. ALSO REPORTS ANXIETY WELL CONTROLLED AT THIS TIME. WARM BLANKET, DIET PEPSI, AND WATER PROVIDED PER PT REQUEST. PT ORIENTED TO ROOM AND CALL SYSTEM. PT RESTING IN BED WITH BED IN LOWEST POSITION AND CALL LIGHT WITHIN REACH. PT DENIES ANY FURTHER NEEDS.
[2025-02-12 16:43] VITALS: BP 135/89
--- NOTE | 2025-02-12 17:14 | NUR ---
SHIFT SUMMARY/ TRANSFER NOTE: PT A&OX4. FOLLOWS COMMANDS AND MAKES NEEDS KNOWN TO STAFF. SINCE PREVIOUS NOTE PT WAS MEDICATED FOR ANXIETY PER EMAR ORDERS. PT REPORTS FEELING A RELIEF IN HIS ANXIETY. PT HAS BEEN SLEEPING FOR A MAJORITY OF THE DAY AND HAS DENIED ANY COMPLAINTS OF CP, PRESSURE, TIGHTNESS, OR SOB SINCE EPISODE AFTER LUNCH TODAY. REPORT WAS GIVEN TO IVAN Hsieh RN TO ASSUME CARE OF PT. PTS BELONGINGS WERE COLLECTED AND TAKEN WITH PT TO ROOM 334 VIA WHEELCHAIR BY THIS RN.
[2025-02-12] MEDS ORDERED: NS 250 ML IV PRN (17:20)
[2025-02-12 19:35] VITALS: BP 129/89
[2025-02-13 02:28] VITALS: BP 138/80
[2025-02-13 05:17] LABS: Hematocrit 42.6 % (37.0-53.0); Hemoglobin 13.5 g/dL (13.5-17.5); Mean Corpuscular HGB 23.9 pg (26.0-34.0); Mean Corpuscular HGB Conc 31.7 g/dL (31.5-36.5); Mean Corpuscular Volume 76 fL (80-100); Platelet Count 176 K/mm3 (150-400); RDW Coefficient Variation 18.7 % (11.7-14.2); RDW Standard Deviation 49.9 fL (35.1-46.3); Red Blood Cell Count 5.64 M/mm3 (4.30-5.90); White Blood Cell Count 7.96 K/mm3 (4.00-11.30)
[2025-02-13 05:50] LABS: Albumin, Blood 2.7 g/dL (3.4-5.0); Anion Gap 11 mmol/L (3-11); Blood Urea Nitrogen 26 mg/dL (8-24); Bun/Creatinine Ratio 25.2 (12.0-20.0); CO2, Blood 24 mmol/L (21-32); Calcium, Blood 8.3 mg/dL (8.5-10.1); Chloride, Blood 98 mmol/L (98-108); Creatinine, Blood 1.03 mg/dL (0.60-1.20); Glomerular Filtration Rate 88 (60-); Glucose, Blood 109 mg/dL (70-99); Phosphorus, Blood 2.3 mg/dL (2.5-4.9); Potassium, Blood 3.7 mmol/L (3.5-5.5); Sodium, Blood 129 mmol/L (136-145); Thyroxine (T4) 7.7 ug/dL (4.5-12.1)
[2025-02-13 07:37] VITALS: BP 149/101
[2025-02-13 07:41] VITALS: BP 119/79
[2025-02-13 15:11] VITALS: BP 135/95
--- NOTE | 2025-02-13 16:47 | NUR ---
I had a lengthy visit with the patient today as we explored pathways to healthier living for his spirit, mind and body. We talked about addiction recovery, lewis, family, hobbies, future plans and bringing up the better version of himself. He responded well to the discussion and prayer and showed signs of catharsis and a greater lewis about restoring his life.
[2025-02-13] MEDS ORDERED: Sodium Phosphate Mono/Dibasic 250 MG Tab PO SCH (17:00)
[2025-02-13] MEDS ORDERED: Spironolactone 25 MG Tab PO SCH (18:30)
[2025-02-13 19:19] VITALS: BP 134/80
--- NOTE | 2025-02-13 19:46 | NUR ---
SHIFT SUMMARY PT A&OX4. PT ADMITTED DUE TO CELLULITIS OF R LOWER LEG. PT REPORTS PAIN. PAIN MANAGED PER EMAR WITH 5MG OF OXY. PT GOT ATIVAN DURING SHIFT DUE TO RESTLESS/ANXIETY. SPIRITUAL CARE CAME TO VISIT PT. PT GETTING IV ANTIBIOTIC. PT IS 1 ASSIST/INDEPENDENT, PT EATS ADEQUATE. PT CONT OF URINE AND BM. PT IS ACHS BLOOD SUGAR, BLOOD SUGAR IS CORRECTED VIA CORRECTION SCALE. NO CHANGE IN REDNESS ON LEG. NIGHT RN REPORTED DECREASE IN REDNESS. PT IN BED BED IN LOWEST POSITION, CALL LIGHT IN REACH. VSS.
[2025-02-14 02:44] VITALS: BP 130/95
--- NOTE | 2025-02-14 04:48 | NUR ---
AAOX4, INDEPENDENT WITH CARES. ENCOURAGED PT TO AMBULATE IN HALLWAY OR AROUND ROOM, DECLINES. INDEPENDENT WITH CARES. AROUND 0300 PT WAS VERY AGGITATED AND UNCOMFORTABLE, REQUESTED ATIVAN AND OVERLAY AIR MATRESS APPLIED TO BED. RESTED COMFORTABLY FOR THE REMAINDER OF SHIFT WITHOUT CONCERNS.
[2025-02-14 05:25] LABS: Hematocrit 43.7 % (37.0-53.0); Hemoglobin 13.8 g/dL (13.5-17.5); Mean Corpuscular HGB 23.8 pg (26.0-34.0); Mean Corpuscular HGB Conc 31.6 g/dL (31.5-36.5); Mean Corpuscular Volume 75 fL (80-100); Platelet Count 198 K/mm3 (150-400); RDW Coefficient Variation 19.1 % (11.7-14.2); RDW Standard Deviation 50.1 fL (35.1-46.3); White Blood Cell Count 8.76 K/mm3 (4.00-11.30)
[2025-02-14 05:58] LABS: Albumin, Blood 2.7 g/dL (3.4-5.0); Anion Gap 12 mmol/L (3-11); Blood Urea Nitrogen 19 mg/dL (8-24); Bun/Creatinine Ratio 24.1 (12.0-20.0); CO2, Blood 22 mmol/L (21-32); Calcium, Blood 8.3 mg/dL (8.5-10.1); Chloride, Blood 101 mmol/L (98-108); Creatinine, Blood 0.79 mg/dL (0.60-1.20); Glomerular Filtration Rate 108 (60-); Glucose, Blood 155 mg/dL (70-99); Phosphorus, Blood 2.8 mg/dL (2.5-4.9); Potassium, Blood 4.1 mmol/L (3.5-5.5); Sodium, Blood 131 mmol/L (136-145)
[2025-02-14 07:31] VITALS: BP 118/81
[2025-02-14 10:37] LABS: Vancomycin, Trough 18.5 ug/mL (5.0-10.0)
[2025-02-14] MEDS ORDERED: JARDIANCE10 MG PO (12:23)
[2025-02-14] MEDS ORDERED: OXAYDO5 M1 PO (12:24)
[2025-02-14] MEDS ORDERED: METO50ER PO (12:24)
[2025-02-14] MEDS ORDERED: FURO20 PO (12:25)
[2025-02-14] MEDS ORDERED: TAMS.4ER PO (12:25)
[2025-02-14] MEDS ORDERED: CEPH500 PO (12:25)
--- NOTE | 2025-02-14 14:42 | NUR ---
DISCHARGE NOTE PT A&OX4. PT ADMITTED DUE TO CELLULITIS, PT REPORTS PAIN, PAIN MANAGED PER EMAR. PT RECEIVED IV ANTIBIOTIC TODAY. IV D/C. WENT OVER DISCHARGE INSTRUCTIONS AND MEDS. MEDS FAXED TO [facility] WHICH IS PREFFERED PHARMACY. VSS. PT ESCORTED BY TILLER MAN VIA WHEELCHAIR. PT LEFT WITH BELONGINGS.
== END 2025-02-14 15:03 | disposition home or self-care (01) | DRG 872 ==
LOC: ER 18:12 → ERHOLD 21:33 → PCU 21:33 → MEDS 02-12 16:29
PROVIDERS: Emergency Medicine; Internal Medicine; Nurse Practitioner Acute Care; ADMIT Internal Medicine
DX: A41.9 Sepsis, unspecified organism (principal); I50.22 Chronic systolic (congestive) heart failure; E87.1 Hypo-osmolality and hyponatremia; L03.115 Cellulitis of right lower limb; E11.9 Type 2 diabetes mellitus without complications; I11.0 Hypertensive heart disease with heart failure; F17.200 Nicotine dependence, unspecified, uncomplicated; E86.0 Dehydration; F15.90 Other stimulant use, unspecified, uncomplicated; F17.210 Nicotine dependence, cigarettes, uncomplicated; K74.60 Unspecified cirrhosis of liver; E78.5 Hyperlipidemia, unspecified; N40.0 Benign prostatic hyperplasia without lower urinary tract symptoms; Z79.4 Long term (current) use of insulin; Z79.84 Long term (current) use of oral hypoglycemic drugs; Z79.82 Long term (current) use of aspirin
CPT/HCPCS: 36415; 71045; 76705; 80048; 80053; 80069; 80202; 80320; 82947; 83605; 83690; 83735; 83880; 84436; 84443; 84484; 85025; 85027; 85610; 86850; 86900; 86901; 87040; 93005; 93010; 96365; 96375; 99285-25; A9270; J0690; J1650; J1815; J2765; J3370; J3475; J7030; J7040; J7050

== ENCOUNTER → 2025-02-28 | Outpatient (CLI) | payer OTHER ==
[~2025-02-28] MED LIST changes: +FURO20 PO; +JARDIANCE10 MG PO; +MAGNESIUM OXID500 MG PO; +METO50ER PO; +OXAYDO5 M1 PO
== END ==
LOC: LAB SHORT 14:27 → LAB 14:27
DX: E11.621 Type 2 diabetes mellitus with foot ulcer (principal); L97.512 Non-pressure chronic ulcer of other part of right foot with fat layer exposed
CPT/HCPCS: 87071; 87075; 87077; 87186; 87205

== ENCOUNTER 2025-09-21 19:04 | Inpatient (IN) | payer OTHER ==
[~2025-09-21] VITALS: Ht 185.4 cm; Wt 108.2 kg
[~2025-09-21 19:04] MED LIST changes: +Bactrim Ds Tab1 EACH PO; +CYCL10 PO; +INSULANPEN SC; +LIDO700A20 TOP; +POTA10T
[2025-09-21] MEDS ORDERED: NS 1,000 ML IV SCH (19:15)
[2025-09-21 19:34] LABS: BASOPHILS ABSOLUTE AUTO 0.05 K/mm3 (0.00-0.23); BASOPHILS PERCENT AUTO 0 % (0-2); EOSINOPHILS ABSOLUTE AUTO 0.08 K/mm3 (0.00-0.68); EOSINOPHILS PERCENT AUTO 1 % (0-6); Hematocrit 53.1 % (37.0-53.0); Hemoglobin 17.3 g/dL (13.5-17.5); IMMATURE GRAN ABSOLUTE AUTO 0.06 K/mm3 (0.00-0.10); IMMATURE GRAN PERCENT AUTO 0 % (0-1); LYMPHOCYTES ABSOLUTE AUTO 1.02 K/mm3 (0.84-5.20); LYMPHOCYTES PERCENT AUTO 7 % (21-46); MONOCYTES ABSOLUTE AUTO 0.62 K/mm3 (0.16-1.47); MONOCYTES PERCENT AUTO 4 % (4-13); Mean Corpuscular HGB Conc 32.6 g/dL (31.5-36.5); Mean Corpuscular Volume 85 fL (80-100); NEUTROPHILS ABSOLUTE AUTO 12.75 K/mm3 (1.96-9.15); NEUTROPHILS PERCENT AUTO 88 % (41-73); NRBC ABSOLUTE 0.00 K/mm3 (0.00-0.02); NRBC Auto 0.0 /100 WBC (0.0-0.2); Platelet Count 258 K/mm3 (150-400); RDW Coefficient Variation 12.4 % (11.7-14.2); RDW Standard Deviation 38.4 fL (35.1-46.3)
[2025-09-21 19:49] LABS: Prothrombin Time Results 12.8 Sec (9.7-11.5)
[2025-09-21 19:51] LABS: Alanine Aminotransfer (ALT/SGP 38.0 U/L (12-78); Albumin, Blood 4.1 g/dL (3.4-5.0); Albumin/Globulin Ratio 0.8 (0.8-1.8); Anion Gap 10.0 mmol/L (3-11); Aspartate Aminotrans (AST/SGOT 25.0 U/L (12-37); Bilirubin, Direct 0.6 mg/dL (0.0-0.3); Bilirubin, Indirect 1.6 mg/dL (0.1-0.7); Bilirubin, Total 2.2 mg/dL (0.1-1.0); Blood Urea Nitrogen 21.0 mg/dL (8-24); CO2, Blood 27.0 mmol/L (21-32); Calcium, Blood 10.1 mg/dL (8.5-10.1); Chloride, Blood 96.0 mmol/L (98-108); Creatinine, Blood 0.96 mg/dL (0.60-1.20); Globulin, Blood 5.0 g/dL (2.2-4.0); Glucose, Blood 231.0 mg/dL (70-99); Magnesium, Blood 1.7 mg/dL (1.6-2.4); Phosphorus, Blood 2.6 mg/dL (2.5-4.9); Potassium, Blood 4.2 mmol/L (3.5-5.5); Sodium, Blood 129.0 mmol/L (136-145); Total Protein, Blood 9.1 g/dL (6.4-8.2)
[2025-09-21 20:27] LABS: CORONAVIRUS COVID-19 AG Negative (NEGATIVE)
[2025-09-21 20:28] LABS: Source, Urine Voided
[2025-09-21 20:36] LABS: Bilirubin, Urine Neg (Neg); Glucose Qualitative, Urine 1+ (Neg); Ketones, Urine 1+ (Neg); Leukocyte Esterase, Urine Neg (Neg); Protein, Urine 3+ (Neg); Specific Gravity, Urine 1.020 (1.003-1.022); Urobilinogen, Urine 1+ (Normal)
[2025-09-21 20:47] LABS: Color, Urine Yellow (P-Yellow)
[2025-09-21 20:48] LABS: White Blood Cells, Urine 0-2 /hpf (0-5)
[2025-09-21] MEDS ORDERED: LORazepam 2 MG/ML 1ML Injection IV ONE (21:25)
[2025-09-21] MEDS ORDERED: Diltiazem HCl 5 MG / ML 5ML Vial IV ONE ×2 (22:00→22:25)
[2025-09-21] MEDS ORDERED: CeFAZolin Sodium 1,000 MG in NS 50 ML IV ONE (23:20)
[2025-09-21] MEDS ORDERED: FLU VACC TS2025-26(6MOS UP)/PF 45 MCG/0.5 ML SYRINGE IM SCH (23:45)
[2025-09-21] MEDS ORDERED: Magnesium Sulf 2 GM/Water 50ML 50 ML IV ONE (23:45)
[2025-09-21] MEDS ORDERED: Ondansetron HCl 2 MG / ML 2ML Vial IV PRN (23:45)
[2025-09-22] VITALS (7 sets, daily range): BP systolic 107–138; BP diastolic 71–90
[2025-09-22] MEDS ORDERED: Enoxaparin 40 MG/0.4 ML SYR SC SCH
[2025-09-22 00:23] LABS: Ethanol (Alcohol), Blood, Med <3 mg/dL
[2025-09-22 02:05] LABS: U Amphetamine Screen DETECTED; U Barbiturate Screen Not Detected; U Benzodiazapine Screen Not Detected; U Buprenorphine Screen Not Detected; U Cannabinoids Screen DETECTED; U Cocaine Screen Not Detected; U Methadone Screen Not Detected; U Methamphetamine Screen DETECTED; U Opiates Screen Not Detected; U Oxycodone Screen Not Detected; U Phencyclidine Screen Not Detected
[2025-09-22] MEDS ORDERED: Aspirin325 MG PO (02:49)
[2025-09-22 03:43] LABS: BASOPHILS ABSOLUTE AUTO 0.06 K/mm3 (0.00-0.23); BASOPHILS PERCENT AUTO 0 % (0-2); EOSINOPHILS ABSOLUTE AUTO 0.13 K/mm3 (0.00-0.68); EOSINOPHILS PERCENT AUTO 1 % (0-6); Hematocrit 47.9 % (37.0-53.0); Hemoglobin 15.8 g/dL (13.5-17.5); IMMATURE GRAN ABSOLUTE AUTO 0.32 K/mm3 (0.00-0.10); IMMATURE GRAN PERCENT AUTO 2 % (0-1); LYMPHOCYTES ABSOLUTE AUTO 0.37 K/mm3 (0.84-5.20); LYMPHOCYTES PERCENT AUTO 2 % (21-46); MONOCYTES ABSOLUTE AUTO 0.88 K/mm3 (0.16-1.47); MONOCYTES PERCENT AUTO 6 % (4-13); Mean Corpuscular HGB Conc 33.0 g/dL (31.5-36.5); Mean Corpuscular Volume 86 fL (80-100); NEUTROPHILS ABSOLUTE AUTO 14.30 K/mm3 (1.96-9.15); NEUTROPHILS PERCENT AUTO 89 % (41-73); NRBC ABSOLUTE 0.00 K/mm3 (0.00-0.02); NRBC Auto 0.0 /100 WBC (0.0-0.2); Platelet Count 219 K/mm3 (150-400); RDW Coefficient Variation 12.3 % (11.7-14.2); RDW Standard Deviation 38.5 fL (35.1-46.3)
[2025-09-22 04:06] LABS: Alanine Aminotransfer (ALT/SGP 29.0 U/L (12-78); Albumin, Blood 3.2 g/dL (3.4-5.0); Albumin/Globulin Ratio 0.7 (0.8-1.8); Anion Gap 12.0 mmol/L (3-11); Aspartate Aminotrans (AST/SGOT 21.0 U/L (12-37); Bilirubin, Total 2.5 mg/dL (0.1-1.0); Blood Urea Nitrogen 20.0 mg/dL (8-24); CO2, Blood 25.0 mmol/L (21-32); Calcium, Blood 8.8 mg/dL (8.5-10.1); Chloride, Blood 96.0 mmol/L (98-108); Creatinine, Blood 0.97 mg/dL (0.60-1.20); Globulin, Blood 4.3 g/dL (2.2-4.0); Glucose, Blood 227.0 mg/dL (70-99); Potassium, Blood 4.7 mmol/L (3.5-5.5); Sodium, Blood 128.0 mmol/L (136-145); Total Protein, Blood 7.5 g/dL (6.4-8.2)
[2025-09-22] MEDS ORDERED: LORazepam 2 MG/ML 1ML Injection IV ONE (04:15)
[2025-09-22] MEDS ORDERED: Metoclopramide HCl 5MG / ML 2ML Vial IV PRN (04:15)
[2025-09-22] MEDS ORDERED: Magnesium Hydroxide Conc 10 ML UDC PO PRN (06:40)
[2025-09-22 07:16] LABS: U Amphetamine Screen DETECTED; U Barbiturate Screen Not Detected; U Benzodiazapine Screen DETECTED; U Buprenorphine Screen Not Detected; U Cannabinoids Screen DETECTED; U Cocaine Screen Not Detected; U Methadone Screen Not Detected; U Methamphetamine Screen DETECTED; U Opiates Screen Not Detected; U Oxycodone Screen Not Detected; U Phencyclidine Screen Not Detected
--- NOTE | 2025-09-22 07:21 | NUR ---
SHIFT SUMMARY: PATIENT ARRIVED FROM ER EARLIER THIS MORNING AT AROUND 0230 VIA GURNEY. PATIENT WAS ABLE TO STAND AND WALK FROM GURNEY TO THE BED IN THE ROOM A SBA DUE TO HAVING A UNSTEADY GAIT. PATIENTIS A&OX4, BUT BETWEEN [id number] THIS MORNING PATIENT STATED "I'M SEEING TRIPPY STUFF." PATIENT AFTER THEN CLARIFIED HE WAS HAVING VISUAL HALLUCINATIONS, AND WHEN ASKING FOR MORE SPECIFICS ON WHAT HE WAS SEEING, PATIENT WOULD ALREADY BE SNORING WITH EYES CLOSED AND SPO2 >90% ON ROOM AIR. PATIENT IS ALSO NOTED TO HAVE PROFUSE SWEATING AND HAS BECOME MORE RESTLESS AND IMPULSIVE WHICH HE WAS NOT DOING ON ARRIVAL. IT IS TO BE NOTED THAT PATIENTS URINE TOXICOLOGY RESULTS ARE COMPLETED, AND ALSO PATIENT WAS GIVEN X1 DOSE OF IV ATIVAN 0.5MG AT 042 PER JAN. BED ALARM IN PLACE A PATIENT SAFETY PRECAUTION. PATIENT DOES FOLLOW DIRECTIONS AND IS COOPERATIVE WITH CARE AT THIS TIME. Goodie Goodie App NATA STATED PATIENTS RHYTHM IS SINUS TACH WITH ST ELEVATIONS/DEPRESSIONS WITH RATE AT 110'S BPM. PATIENT DENIES CHEST PAIN, PALPATATIONS, OR PRESSURE AT THIS TIME. BP HAS BEEN STABLE SINCE ARRIVAL. PATIENT IS VOIDING VIA URINAL AT BEDSIDE BUT DOES NEED TO STAND TO VOID. 1P ASSIST WITH URINAL AT BEDSIDE. DR. RODRIGUEZ WAS CALLED AND NOTIFIED ABOUT PATIENTS MORNING LAB RESULTS OF SODIUM BEING 128 AND CLORIDE BEING 96. DID NOT PLACE NEW ORDERS AT THIS TIME. PATIENT IS CURRENTLY LAYING IN BED WITH CALL LIGHT IN REACH AND BED ALARM ON.
[2025-09-22] MEDS ORDERED: Insulin Human Lispro 100 Units/ML 3ML Syringe SC SCH (07:30)
[2025-09-22] MEDS ORDERED: CeFAZolin Sodium 1,000 MG in NS 50 ML IV SCH (08:00)
[2025-09-22] MEDS ORDERED: Ketorolac Tromethamine 30mg Vial IV PRN (08:20)
[2025-09-22 11:24] LABS: Influenza A, PCR NEGATIVE (NEGATIVE); Influenza B, PCR NEGATIVE (NEGATIVE); Resp Syncytial Virus, PCR NEGATIVE (NEGATIVE); SARS-Cov-2 (COVID-19) PCR, MMC NEGATIVE (NEGATIVE)
[2025-09-22] MEDS ORDERED: DAPAGLIFLOZIN10 MG PO (16:25)
[2025-09-22] MEDS ORDERED: MAGNESIUM OXID400 M1 PO (16:25)
--- NOTE | 2025-09-22 18:04 | NUR ---
SHIFT SUMMARY; ASSUMED CARE AT 0700. SOMMULENT AND DIFFICULT TO ARROUSE EARLY IN SHIFT. OPENS EYES TO NAME BUT ONLY MUMBLES WHEN ASKED QUESTIONS. RIGHT LEG RED AND WARM FROM BELOW KNEE TO FOOT. FEET DUSKY BILATERALLY WITH CAP REFILL 4SEC. BILATERAL PEDAL PULSES WEAK. VSS, TMAX DURING SHIFT 103.3. TREATED WITH TYL. MORE ALERT IN AFTERNOON AND ABLE TO ANSWER QUESTIONS. SITS AT BEDSIDE TO EAT DINNER. INSULIN PER EMAR. HR 100-120 SINUS TACH. USING URNIAL AT BEDSIDE. COOPERATIVE WITH CARE. WILL CONTINUE TO MONITOR AND TREAT UNTIL CHANGE OF SHIFT.
[2025-09-23] VITALS (11 sets, daily range): BP systolic 92–141; BP diastolic 53–86
[2025-09-23 03:56] LABS: BASOPHILS ABSOLUTE AUTO 0.06 K/mm3 (0.00-0.23); BASOPHILS PERCENT AUTO 1 % (0-2); EOSINOPHILS ABSOLUTE AUTO 0.10 K/mm3 (0.00-0.68); EOSINOPHILS PERCENT AUTO 1 % (0-6); Hematocrit 44.9 % (37.0-53.0); Hemoglobin 15.2 g/dL (13.5-17.5); IMMATURE GRAN ABSOLUTE AUTO 0.09 K/mm3 (0.00-0.10); IMMATURE GRAN PERCENT AUTO 1 % (0-1); LYMPHOCYTES ABSOLUTE AUTO 0.87 K/mm3 (0.84-5.20); LYMPHOCYTES PERCENT AUTO 7 % (21-46); MONOCYTES ABSOLUTE AUTO 0.84 K/mm3 (0.16-1.47); MONOCYTES PERCENT AUTO 7 % (4-13); Mean Corpuscular HGB Conc 33.9 g/dL (31.5-36.5); Mean Corpuscular Volume 83 fL (80-100); NEUTROPHILS ABSOLUTE AUTO 10.72 K/mm3 (1.96-9.15); NEUTROPHILS PERCENT AUTO 85 % (41-73); NRBC ABSOLUTE 0.00 K/mm3 (0.00-0.02); NRBC Auto 0.0 /100 WBC (0.0-0.2); Platelet Count 177 K/mm3 (150-400); RDW Coefficient Variation 12.7 % (11.7-14.2); RDW Standard Deviation 38.3 fL (35.1-46.3)
[2025-09-23 04:22] LABS: Alanine Aminotransfer (ALT/SGP 33.0 U/L (12-78); Albumin, Blood 2.7 g/dL (3.4-5.0); Albumin/Globulin Ratio 0.6 (0.8-1.8); Anion Gap 10.0 mmol/L (3-11); Aspartate Aminotrans (AST/SGOT 37.0 U/L (12-37); Bilirubin, Total 2.2 mg/dL (0.1-1.0); Blood Urea Nitrogen 32.0 mg/dL (8-24); CO2, Blood 23.0 mmol/L (21-32); Calcium, Blood 9.0 mg/dL (8.5-10.1); Chloride, Blood 95.0 mmol/L (98-108); Creatinine, Blood 1.1 mg/dL (0.60-1.20); Globulin, Blood 4.3 g/dL (2.2-4.0); Glucose, Blood 225.0 mg/dL (70-99); Potassium, Blood 4.2 mmol/L (3.5-5.5); Sodium, Blood 124.0 mmol/L (136-145); Total Protein, Blood 7.0 g/dL (6.4-8.2)
--- NOTE | 2025-09-23 06:46 | NUR ---
PT STABLE THROUGHOUT THE SHIFT. PT AOX4, SBA, USING URINAL AT BEDSIDE INDEPENDENTLY. PT DID HAVE GOOD URINARY OUTPUT BUT IS URINATING DARK KETAN URINE. VITAL SIGNS MOSTLY WNL, HR IS MILDLY TACHY AT TIMES. PT DID FREQUENTLY C/O GERD WHICH CAUSED NAUSEA. PT DID RECEIVE TUMS EVERY Q6H WITH LITTLE EFFECT. PT TOLERATING IV ABX WELL.
[2025-09-23] MEDS ORDERED: Pantoprazole Sodium 40 MG Injection IV SCH (16:30)
--- NOTE | 2025-09-23 18:16 | NUR ---
SHIFT SUMMARY; ASSUMED CARE AT 0700. SOMMULENT T/O SHIFT, BUT EASILY WAKES TO VERBAL STIMULI, ORIENTED X4 WHEN AWAKE. ENCOURAGED PO FLUIDS DURING SHIFT PER PROVIDER. STRICT I'S AND O'S IN PLACE. REPORTS ACID REFLUX, NEW MEDS ORDERED AND GIVEN. VOMMITED DARK BROWN LIQUID IN AFTERNOON, APPROX 400ML. NOTIFIED PROVIDER, EVALUATED AND ANTI NAUSEA MEDS ORDERED. REPOSITIONS SELF ON BED, USES URINAL AT BEDSIDE. VSS, LEFT LEG WARM AND RED FROM BELOW KNEE TO FOOT. SAME PREVIOUS SHIFT, EDGES MARKED PREVIOUSLY. FEET DUSKY BILATERALLY WITH FAINT PALPABLE PULSES. WILL CONTINUE TO MONITOR AND TREAT UNTIL REPORT GIVEN TO NOC SHIFT RN.
--- NOTE | 2025-09-23 23:39 | NUR ---
SHIFT SUMMARY PT DROWSY BUT EASILY AWAKENS TO VERBAL STIMULI &O X4, ABLE TO MAKE NEEDS KNOWN, MOVING ALL EXTREMITIES WITH PURPOSE, REPOSITIONING SELF IN BED, CALLS APPROPRIATELY. CONTINUOUS SPO2, SPO2 GREATER THAN 92% ON RA, NO SIGNS OF RESPIRATORY DISTRESS NOTED, PT DENIES SOB T/O THIS SHIFT. CONTINUOUS TELE MONITORING, SINUS 90-100 S S,BP STABLE WITH MAP GREATER THAN 65, CAP REFILL WNL, PULSES PRESENT T/O, PT DENIES CHEST P/P T/O THIS SHIFT. BOWEL TONES PRESENT IN ALL 4Q, PT DENIES FEELINGS OF CONSTIPATION. USING URINAL IND, URINE KETAN IN COLOR.
[2025-09-24] VITALS (16 sets, daily range): BP systolic 81–121; BP diastolic 57–99
--- NOTE | 2025-09-24 03:39 | NUR ---
PATIENT EVENT @ APPROX 0256 PT TO BATHROOM WITH SKETCH MAKER ASSISTANCE, PT PULLED CALL CORED IN BATHROOM FOR ASSISTANCE BACK TO BED AND ASSISTANCE WITH GETTING CLEAN, STOOL NOW APPEARING MAROON, PT REPORTING DIZZINESS, MULTIPLE STAFF IN ROOM TO ASSIST PT BACK TO BED WITH WHEEL CHAIR, PT APPEARS PALE SBP 80 S DURING CHECK OF VITALS, DR. ENNIS INFORMED OF EVENT, NEW ORDERS PLACED.
[2025-09-24 04:39] LABS: BASOPHILS ABSOLUTE AUTO 0.05 K/mm3 (0.00-0.23); BASOPHILS PERCENT AUTO 0 % (0-2); EOSINOPHILS ABSOLUTE AUTO 0.05 K/mm3 (0.00-0.68); EOSINOPHILS PERCENT AUTO 0 % (0-6); Hematocrit 34.3 % (37.0-53.0); Hemoglobin 11.8 g/dL (13.5-17.5); IMMATURE GRAN ABSOLUTE AUTO 0.07 K/mm3 (0.00-0.10); IMMATURE GRAN PERCENT AUTO 1 % (0-1); LYMPHOCYTES ABSOLUTE AUTO 1.79 K/mm3 (0.84-5.20); LYMPHOCYTES PERCENT AUTO 13 % (21-46); MONOCYTES ABSOLUTE AUTO 1.58 K/mm3 (0.16-1.47); MONOCYTES PERCENT AUTO 12 % (4-13); Mean Corpuscular HGB Conc 34.4 g/dL (31.5-36.5); Mean Corpuscular Volume 83 fL (80-100); NEUTROPHILS ABSOLUTE AUTO 10.19 K/mm3 (1.96-9.15); NEUTROPHILS PERCENT AUTO 74 % (41-73); NRBC ABSOLUTE 0.00 K/mm3 (0.00-0.02); NRBC Auto 0.0 /100 WBC (0.0-0.2); Platelet Count 178 K/mm3 (150-400); RDW Coefficient Variation 12.6 % (11.7-14.2); RDW Standard Deviation 38.5 fL (35.1-46.3)
[2025-09-24 04:49] LABS: Alanine Aminotransfer (ALT/SGP 26.0 U/L (12-78); Albumin, Blood 2.3 g/dL (3.4-5.0); Albumin/Globulin Ratio 0.6 (0.8-1.8); Anion Gap 11.0 mmol/L (3-11); Aspartate Aminotrans (AST/SGOT 38.0 U/L (12-37); Bilirubin, Total 1.4 mg/dL (0.1-1.0); Blood Urea Nitrogen 59.0 mg/dL (8-24); CO2, Blood 21.0 mmol/L (21-32); Calcium, Blood 8.0 mg/dL (8.5-10.1); Chloride, Blood 99.0 mmol/L (98-108); Creatinine, Blood 1.05 mg/dL (0.60-1.20); Globulin, Blood 3.7 g/dL (2.2-4.0); Glucose, Blood 172.0 mg/dL (70-99); Potassium, Blood 4.9 mmol/L (3.5-5.5); Sodium, Blood 126.0 mmol/L (136-145); Total Protein, Blood 6.0 g/dL (6.4-8.2)
--- NOTE | 2025-09-24 06:12 | NUR ---
SHIFT SUMMARY PT DROWSY BUT EASILY AWAKENS TO VERBAL STIMULI &O X4, ABLE TO MAKE NEEDS KNOWN, MOVING ALL EXTREMITIES WITH PURPOSE, REPOSITIONING SELF IN BED, CALLS APPROPRIATELY. CONTINUOUS SPO2, SPO2 GREATER THAN 92% ON RA, NO SIGNS OF RESPIRATORY DISTRESS NOTED, PT DENIES SOB T/O THIS SHIFT. CONTINUOUS TELE MONITORING, SINUS 90-100 S S,BP STABLE WITH MAP GREATER THAN 65, CAP REFILL WNL, PULSES PRESENT T/O, PT DENIES CHEST P/P T/O THIS SHIFT. BOWEL TONES PRESENT IN ALL 4Q, PT DENIES FEELINGS OF CONSTIPATION, SEE THIS RN S PREVIOUS. USING URINAL IND, URINE KETAN IN COLOR. MADE DR. ENNIS AWARE OF HGB DROP FROM 15.2 TO 11.8 ON THIS AM LABS, NEW ORDERS TO TREND H&H. BED LOWEST POSITION, CALL LIGHT IN REACH, AWAITING TO GIVE REPORT TO ONCOMING RN.
[2025-09-24] MEDS ORDERED: Octreotide Acetate 500 MCG in NS 250 ML IV SCH (08:05)
[2025-09-24] MEDS ORDERED: CefTRIAXone Sodium 1,000 MG in NS 100 ML IV SCH (09:00)
[2025-09-24 09:42] LABS: Hematocrit 25.1 % (37.0-53.0); Hemoglobin 8.5 g/dL (13.5-17.5)
[2025-09-24] MEDS ORDERED: NS 500 ML IV SCH (10:35)
[2025-09-24 12:13] LABS: Stool Occult Blood Guaiac 1 Pos (Neg)
--- NOTE | 2025-09-24 13:25 | NUR ---
ASSUMED CARE AT 0700. A/A/OX4. SHORTLY AFTER ASSUMING CARE HAD LARGE INCONTINANT MAROON STOOL. PROVIDER TO BEDSIDE. REPEAT H & H PREVIOUSLY ORDERED. APPEARS PALE AND IS DIAPHERTIC. 1L LR BOLUS STARTED PER EMAR. BP SOFT AND WILL CONTINUE TO MONITOR. SECOND BLOODY STOOL APPROX 2 [address] LATER. CALLED TO DR. CORDOVA TO REPORT RECENT HEMOGLOBIN DROP. TYPE AND SCREEN ORDERED AT 2 UNITS PRBC TO BE GIVEN STAT. PREPARING FOR COBRA TRANSFER TO [facility]. 1ST UNIT [facility] INFUSING WHEN REPORT GIVEN TO REACH TRANSPORT CREW. 2ND UNIT GIVEN TO CREW TO TRANSFUSE IN ROUTE PER ORDERS. REPORT CALLED TO [facility] CREDIT SPECIALIST.
== END 2025-09-24 12:15 | disposition short-term general hospital (02) | DRG 308 ==
LOC: ER 19:04 → PCU 19:05
PROVIDERS: Emergency Medicine; Internal Medicine; Student in an Organized Health Care Education/Training Program; ADMIT Internal Medicine
PROC: 3E03329 Introduction of Other Anti-infective into Peripheral Vein, Percutaneous Approach (ICD-10-PCS; principal; 2025-09-21)
PROC: 5A09357 Assistance with Respiratory Ventilation, Less than 24 Consecutive Hours, Continuous Positive Airway Pressure (ICD-10-PCS; 2025-09-22)
PROC: 0T9B70Z Drainage of Bladder with Drainage Device, Via Natural or Artificial Opening (ICD-10-PCS; 2025-09-24)
PROC: 30233N1 Transfusion of Nonautologous Red Blood Cells into Peripheral Vein, Percutaneous Approach (ICD-10-PCS; 2025-09-24)
DX: I48.91 Unspecified atrial fibrillation (principal); A41.9 Sepsis, unspecified organism; K27.4 Chronic or unspecified peptic ulcer, site unspecified, with hemorrhage; L03.116 Cellulitis of left lower limb; L03.115 Cellulitis of right lower limb; I50.22 Chronic systolic (congestive) heart failure; E87.1 Hypo-osmolality and hyponatremia; D62 Acute posthemorrhagic anemia; I48.92 Unspecified atrial flutter; F15.90 Other stimulant use, unspecified, uncomplicated; I11.0 Hypertensive heart disease with heart failure; F17.210 Nicotine dependence, cigarettes, uncomplicated; N40.0 Benign prostatic hyperplasia without lower urinary tract symptoms; K21.9 Gastro-esophageal reflux disease without esophagitis; E11.65 Type 2 diabetes mellitus with hyperglycemia; F41.9 Anxiety disorder, unspecified; K64.9 Unspecified hemorrhoids; Z79.4 Long term (current) use of insulin; Z79.84 Long term (current) use of oral hypoglycemic drugs
CPT/HCPCS: 36415; 36430; 71045; 74177; 80053; 80162; 80320; 81001; 82248; 82272; 82947; 83036; 83605; 83735; 83880; 84100; 84484; 85014; 85018; 85025; 85610; 85730; 86850; 86900; 86901; 86923; 87040; 87426-QW; 87637; 93005; 93010; 96361; 96365; 96367; 96372-59; 96375; 96376; 99285-25; A9270; G0378; J0690; J0696; J1160; J1650; J1885; J2060; J2354; J2405; J2470; J2765; J3475; J7030; J7050; J7120; P9016; Q9967

== ENCOUNTER 2025-10-12 00:06 | Emergency (ER) | payer OTHER ==
[~2025-10-12] VITALS: Ht 185.4 cm; Wt 113.4 kg
[~2025-10-12 00:06] MED LIST changes: +Aspirin325 MG PO; +DAPAGLIFLOZIN10 MG PO; +MAGNESIUM OXID400 M1 PO
[2025-10-12] MEDS ORDERED: Ondansetron HCl 2 MG / ML 2ML Vial IV PRN (00:30)
[2025-10-12 00:36] LABS: BASOPHILS ABSOLUTE AUTO 0.13 K/mm3 (0.00-0.23); BASOPHILS PERCENT AUTO 2 % (0-2); EOSINOPHILS ABSOLUTE AUTO 0.22 K/mm3 (0.00-0.68); EOSINOPHILS PERCENT AUTO 4 % (0-6); Hematocrit 31.9 % (37.0-53.0); Hemoglobin 9.9 g/dL (13.5-17.5); IMMATURE GRAN ABSOLUTE AUTO 0.01 K/mm3 (0.00-0.10); IMMATURE GRAN PERCENT AUTO 0 % (0-1); LYMPHOCYTES ABSOLUTE AUTO 1.87 K/mm3 (0.84-5.20); LYMPHOCYTES PERCENT AUTO 35 % (21-46); MONOCYTES ABSOLUTE AUTO 0.48 K/mm3 (0.16-1.47); MONOCYTES PERCENT AUTO 9 % (4-13); Mean Corpuscular HGB Conc 31.0 g/dL (31.5-36.5); Mean Corpuscular Volume 87 fL (80-100); NEUTROPHILS ABSOLUTE AUTO 2.60 K/mm3 (1.96-9.15); NEUTROPHILS PERCENT AUTO 49 % (41-73); NRBC ABSOLUTE 0.00 K/mm3 (0.00-0.02); NRBC Auto 0.0 /100 WBC (0.0-0.2); Platelet Count 330 K/mm3 (150-400); RDW Coefficient Variation 14.3 % (11.7-14.2); RDW Standard Deviation 45.1 fL (35.1-46.3)
[2025-10-12 00:55] LABS: Alanine Aminotransfer (ALT/SGP 28.0 U/L (12-78); Albumin, Blood 3.2 g/dL (3.4-5.0); Albumin/Globulin Ratio 0.6 (0.8-1.8); Anion Gap 9.0 mmol/L (3-11); Aspartate Aminotrans (AST/SGOT 24.0 U/L (12-37); Bilirubin, Total 0.5 mg/dL (0.1-1.0); Blood Urea Nitrogen 20.0 mg/dL (8-24); CO2, Blood 23.0 mmol/L (21-32); Calcium, Blood 8.8 mg/dL (8.5-10.1); Chloride, Blood 104.0 mmol/L (98-108); Creatinine, Blood 0.93 mg/dL (0.60-1.20); Globulin, Blood 5.4 g/dL (2.2-4.0); Glucose, Blood 312.0 mg/dL (70-99); Potassium, Blood 4.4 mmol/L (3.5-5.5); Sodium, Blood 132.0 mmol/L (136-145); Total Protein, Blood 8.6 g/dL (6.4-8.2)
[2025-10-12 01:36] LABS: Magnesium, Blood 1.9 mg/dL (1.6-2.4); Phosphorus, Blood 3.4 mg/dL (2.5-4.9)
[2025-10-12 01:45] VITALS: BP 139/79
[2025-10-12] MEDS ORDERED: CefTRIAXone Sodium 1,000 MG in NS 50 ML IV ONE (04:50)
[2025-10-12] MEDS ORDERED: NS 1,000 ML IV SCH (04:50)
[2025-10-12] MEDS ORDERED: Cephalexin500 MG PO (04:50)
[2025-10-12] MEDS ORDERED: Ondansetron HCl 2 MG / ML 2ML Vial IV ONE (05:50)
== END 2025-10-12 07:35 | disposition home or self-care (01) ==
LOC: ER 00:06
PROVIDERS: Emergency Medicine
DX: L03.116 Cellulitis of left lower limb (principal); R06.02 Shortness of breath; D64.9 Anemia, unspecified; R79.89 Other specified abnormal findings of blood chemistry; E11.65 Type 2 diabetes mellitus with hyperglycemia; I11.0 Hypertensive heart disease with heart failure; I50.20 Unspecified systolic (congestive) heart failure; F17.210 Nicotine dependence, cigarettes, uncomplicated; Z79.4 Long term (current) use of insulin; Z79.82 Long term (current) use of aspirin; Z79.899 Other long term (current) drug therapy; Z91.018 Allergy to other foods
CPT/HCPCS: 71046; 71260; 80053; 83690; 83735; 84100; 84484; 85025; 85379; 93005; 93010; 96365-59; 96375-59; 99285-25; J0696; J2405; J7030; Q9967

== ENCOUNTER → 2025-10-20 | Outpatient (CLI) | payer OTHER ==
[~2025-10-20] MED LIST changes: +Cephalexin500 MG PO
[2025-10-20 14:38] LABS: BASOPHILS ABSOLUTE AUTO 0.05 K/mm3 (0.00-0.23); BASOPHILS PERCENT AUTO 1 % (0-2); EOSINOPHILS ABSOLUTE AUTO 0.26 K/mm3 (0.00-0.68); EOSINOPHILS PERCENT AUTO 5 % (0-6); Hematocrit 33.0 % (37.0-53.0); Hemoglobin 9.8 g/dL (13.5-17.5); IMMATURE GRAN ABSOLUTE AUTO 0.02 K/mm3 (0.00-0.10); IMMATURE GRAN PERCENT AUTO 0 % (0-1); LYMPHOCYTES ABSOLUTE AUTO 1.63 K/mm3 (0.84-5.20); LYMPHOCYTES PERCENT AUTO 32 % (21-46); MONOCYTES ABSOLUTE AUTO 0.43 K/mm3 (0.16-1.47); MONOCYTES PERCENT AUTO 8 % (4-13); Mean Corpuscular HGB Conc 29.7 g/dL (31.5-36.5); Mean Corpuscular Volume 87 fL (80-100); NEUTROPHILS ABSOLUTE AUTO 2.77 K/mm3 (1.96-9.15); NEUTROPHILS PERCENT AUTO 54 % (41-73); NRBC ABSOLUTE 0.00 K/mm3 (0.00-0.02); NRBC Auto 0.0 /100 WBC (0.0-0.2); RDW Coefficient Variation 14.7 % (11.7-14.2); RDW Standard Deviation 47.0 fL (35.1-46.3)
[2025-10-20 15:08] LABS: Alanine Aminotransfer (ALT/SGP 21 U/L (12-78); Albumin, Blood 3.3 g/dL (3.4-5.0); Albumin/Globulin Ratio 0.6 (0.8-1.8); Anion Gap 7 mmol/L (3-11); Aspartate Aminotrans (AST/SGOT 17 U/L (12-37); Bilirubin, Total 0.6 mg/dL (0.1-1.0); Blood Urea Nitrogen 16 mg/dL (8-24); CHOL/HDL RATIO 2.4; CO2, Blood 27 mmol/L (21-32); Calcium, Blood 9.1 mg/dL (8.5-10.1); Chloride, Blood 101 mmol/L (98-108); Cholesterol 88 mg/dL (50-200); Creatinine, Blood 0.80 mg/dL (0.60-1.20); Globulin, Blood 5.1 g/dL (2.2-4.0); Glucose, Blood 208 mg/dL (70-99); HDL Cholesterol 37 mg/dL (>39); LDL/HDL RATIO 1.0; Low Density Lipoprotein Chol 39 mg/dL (0-110); Potassium, Blood 3.9 mmol/L (3.5-5.5); Sodium, Blood 131 mmol/L (136-145); Thyroid Stimulating Hormone 2.450 uIU/mL (0.360-4.800); Total Protein, Blood 8.4 g/dL (6.4-8.2); Triglycerides 61 mg/dL (30-160); Very Low Density Lipoprot Chol 12 mg/dL (6-32)
== END | disposition home or self-care (01) ==
LOC: LAB SHORT 09:39 → LAB 09:39
PROVIDERS: Nurse Practitioner Family
DX: Z00.00 Encounter for general adult medical examination without abnormal findings (principal)
CPT/HCPCS: 80053; 80061; 83036; 83880; 84443; 85025

== ENCOUNTER 2025-10-21 14:23 | Emergency (ER) | payer OTHER ==
[~2025-10-21] VITALS: Ht 185.4 cm; Wt 111.1 kg
[2025-10-21 15:12] LABS: BASOPHILS ABSOLUTE AUTO 0.06 K/mm3 (0.00-0.23); BASOPHILS PERCENT AUTO 1 % (0-2); EOSINOPHILS ABSOLUTE AUTO 0.36 K/mm3 (0.00-0.68); EOSINOPHILS PERCENT AUTO 6 % (0-6); Hematocrit 30.3 % (37.0-53.0); Hemoglobin 9.2 g/dL (13.5-17.5); IMMATURE GRAN ABSOLUTE AUTO 0.02 K/mm3 (0.00-0.10); IMMATURE GRAN PERCENT AUTO 0 % (0-1); LYMPHOCYTES ABSOLUTE AUTO 1.41 K/mm3 (0.84-5.20); LYMPHOCYTES PERCENT AUTO 24 % (21-46); MONOCYTES ABSOLUTE AUTO 0.60 K/mm3 (0.16-1.47); MONOCYTES PERCENT AUTO 10 % (4-13); Mean Corpuscular HGB Conc 30.4 g/dL (31.5-36.5); Mean Corpuscular Volume 85 fL (80-100); NEUTROPHILS ABSOLUTE AUTO 3.49 K/mm3 (1.96-9.15); NEUTROPHILS PERCENT AUTO 59 % (41-73); NRBC ABSOLUTE 0.00 K/mm3 (0.00-0.02); NRBC Auto 0.0 /100 WBC (0.0-0.2); Platelet Count 309 K/mm3 (150-400); RDW Coefficient Variation 14.6 % (11.7-14.2); RDW Standard Deviation 45.6 fL (35.1-46.3)
[2025-10-21 15:41] LABS: Alanine Aminotransfer (ALT/SGP 22.0 U/L (12-78); Albumin, Blood 3.1 g/dL (3.4-5.0); Albumin/Globulin Ratio 0.6 (0.8-1.8); Anion Gap 7.0 mmol/L (3-11); Aspartate Aminotrans (AST/SGOT 22.0 U/L (12-37); Bilirubin, Total 0.8 mg/dL (0.1-1.0); Blood Urea Nitrogen 11.0 mg/dL (8-24); CO2, Blood 26.0 mmol/L (21-32); Calcium, Blood 8.8 mg/dL (8.5-10.1); Chloride, Blood 103.0 mmol/L (98-108); Creatinine, Blood 0.84 mg/dL (0.60-1.20); Globulin, Blood 4.9 g/dL (2.2-4.0); Glucose, Blood 265.0 mg/dL (70-99); Potassium, Blood 4.0 mmol/L (3.5-5.5); Sodium, Blood 132.0 mmol/L (136-145); Total Protein, Blood 8.0 g/dL (6.4-8.2)
[2025-10-21 17:02] VITALS: BP 140/84
== END 2025-10-21 16:57 | disposition home or self-care (01) ==
LOC: ER 14:23
PROVIDERS: Physician Assistant
DX: I87.2 Venous insufficiency (chronic) (peripheral) (principal); E11.9 Type 2 diabetes mellitus without complications; I11.0 Hypertensive heart disease with heart failure; I50.20 Unspecified systolic (congestive) heart failure; F17.210 Nicotine dependence, cigarettes, uncomplicated; Z79.4 Long term (current) use of insulin; Z79.82 Long term (current) use of aspirin; Z79.899 Other long term (current) drug therapy; Z91.018 Allergy to other foods
CPT/HCPCS: 71046; 80053; 83880; 84484; 85025; 93005; 93010; 99284-25